=== PATIENT | male | born 1965 | race Caucasian/White ===

== ENCOUNTER 2018-09-20 17:24 | Inpatient (IN) | payer OTHER ==
--- NOTE | 2018-09-20 17:54 | PDOC ---
Rapid Medical Evaluation Chief Complaint: Alcohol intoxication Time Seen by Provider: 09/20/18 17:47 Medical Evaluation: 09/20/18 17:47 53 year old male came for detox from alcohol. patient reports tremors. last drink 2 days ago. patient was seen at [facility] from [facility] for suicidal ideation reports that he waitied long time for a bed at detox center. here requesting detox. PE: patient alert ox3. reports SI A: alcohol abuse P: cbc cmp alcohol level patient to the ER for further management of care. pmhx:chronic pain anxiety 09/20/18 17:57 Discharge Disposition - Diagnosis Suicidal ideation, Alcohol abuse - Referrals - Patient Instructions - Post Discharge Activity
[2018-09-20 17:57] VITALS: BMI 34.1
[2018-09-20 19:39] LABS: BASO % 1.2 % (0-2.0); EOS % 0.7 % (0-4.5); HEMATOCRIT 39.4 % (35.4-49); HEMOGLOBIN 13.6 GM/dL (11.7-16.9); LYMPH % 12.4 % (8-40); MCH 29.9 pg (25.7-33.7); MCHC 34.6 g/dl (32.0-35.9); MEAN CELL VOLUME 86.5 fl (80-96); MEAN PLT VOLUME 6.3 fl (7.5-11.1); MONO % 8.6 % (3.8-10.2); NEUT % 77.1 % (42.8-82.8); PLATELET COUNT 408 K/MM3 (134-434); RBC 4.55 M/mm3 (4.00-5.60); RDW 16.6 % (11.9-15.9)
[2018-09-20 19:40] LABS: URINE APPEARANCE CLEAR; URINE BILIRUBIN NEGATIVE (<2.0 mg/dL); URINE COLOR YELLOW; URINE GLUCOSE (UA) NEGATIVE (NEGATIVE); URINE KETONE TRACE (NEGATIVE); URINE LEUK ESTERASE NEGATIVE (NEGATIVE); URINE NITRITE NEGATIVE (NEGATIVE); URINE PROTEIN 1+ (NEGATIVE); URINE UROBILINOGEN NEGATIVE mg/dL (0.2-1.0)
[2018-09-20 19:50] LABS: EPI CELLS RARE /HPF (FEW); URINE MUCUS MANY
--- NOTE | 2018-09-20 19:52 | PDOC ---
History of Present Illness - General Chief Complaint: Suicidal Stated Complaint: INTOXICATE ALCOHAL Time Seen by Provider: 09/20/18 17:47 - History of Present Illness Initial Comments: Thompson Cutler is a 53yo man with a PMH of depression, anxiety, alcohol abuse , and chronic left hip pain who presents reporting an alcohol binge on Tuesday and current passive suicidal ideation. Mr Cutler states that he has a long history of anxiety and depression; he takes seroquel and xanax at home. He endorses a previous suicide attempt (cut wrists) last year. Currently, he states that he thinks frequently about suicide. He has come up with several plans such as allowing his apartment to fill up with gas and then cause an explosion, but he has rejected the plans as they would harm other people. He also reports a history of anxiety with panic attacks, and requests his home xanax though he denies current anxiety. He endorses a history of binge drinking as well. Mr Cutler states that he does not drink daily, but he binges several time per month. Two days ago, he says that he drank 6 bottles of rum from Tuesday into Tuesday morning. He fell, hurting his right hip, and presented to the ED at [facility]. He says that he was admitted to their "psych [facility]no" and sent to detox, but detox would not take him because he takes oxycodone at home. He states that he did not feel able to go home, so he came here. Mr Cutler does report that he has been seen multiple times at [facility] for alcohol, and he states that they always do blood tests and give him a banana bag. He says his potassium is always low when checked, and he requests labs today. He additionally requests his home medications several times throughout the interview. Past History - Past Medical History Allergies/Adverse Reactions: Allergies Allergy/AdvReac Type Severity Reaction Status Date / Time Penicillins Allergy Verified 09/20/18 21:08 Home Medications: Ambulatory Orders Acetaminophen W/ Codeine #3 [Tylenol # 3 -] 1 tab PO QID 09/20/18 Alprazolam [Xanax] 1 tab PO BID 09/20/18 Mirtazapine 15 mg PO BID 09/20/18 Quetiapine Fumarate [Seroquel] 100 tab PO HS 09/20/18 oxyCODONE SR [Oxycontin] 10 mg PO DAILY 09/20/18 COPD: No - Suicide/Smoking/Psychosocial Hx Smoking History: Never smoked Hx Alcohol Use: Yes Review of Systems - Review of Systems Comments:: General: No fevers, no chills, no weight or appetite change, no malaise HEENT: No changes in vision, no changes in hearing, no congestion, no sore throat CV: No chest pain, no palpitations, no LE edema Pulm: No SOB, no cough, no wheezing GI: No nausea or vomiting, no change in bowel habits, no melena : No frequency, no urgency, no dysuria Musc: No back pain, no joint swelling, no recent injury Skin: No rash, no lesions, no erythema Endo: No excessive thirst, no heat/cold intolerance Heme: No unusual bruising or bleeding, no swollen glands Neuro: No syncope, no numbness/tingling, no focal weakness Vasc: No claudication Psych: +SI, no HI, +alcohol abuse *Physical Exam - Vital Signs Last Vital Signs Temp Pulse Resp BP Pulse Ox 98.3 F 111 H 20 127/74 99 09/20/18 17:56 09/20/18 17:56 09/20/18 17:56 09/20/18 17:56 09/20/18 17:56 - Physical Exam Comments: General: Comfortable, no acute distress. Obese. Wearing a diaper and shirt, no other clothing. HEENT: PERRL, EOMI, MMM, voice normal. Poor dentition with multiple missing teeth Cards: RRR, no murmur appreciated Pulm: Comfortable on room air, clear to auscultation bilaterally Abd: Soft, nontender, nondistended Ext: Atraumatic. No LE edema. Moves all extremities Vasc: Extremities WWP. Skin: Normal color, no rashes or lesions Neuro: A&Ox3, CN grossly intact, normal speech, motor/sensory grossly intact and symmetric Psych: Pleasant, cooperative, normal affect. Very eager to have labs, tests Moderate Sedation - Procedure Monitoring Vital Signs: Procedure Monitoring Vital Signs Temperature 98.3 F 09/20/18 17:56 Pulse Rate 111 H 09/20/18 17:56 Respiratory Rate 20 09/20/18 17:56 Blood Pressure 127/74 09/20/18 17:56 O2 Sat by Pulse Oximetry (%) 99 09/20/18 17:56 ED Treatment Course - LABORATORY CBC & Chemistry Diagram: 09/20/18 19:35 09/20/18 19:35 - ADDITIONAL ORDERS Additional order review: Laboratory Results 09/20/18 19:35 Urine Color Yellow Urine Appearance Clear Urine pH 6.0 Ur Specific [place] 1.026 Urine Protein 1+ H Urine Glucose (UA) Negative Urine Ketones Trace H Urine Blood Negative Urine Nitrite Negative Urine Bilirubin Negative Urine Urobilinogen Negative Ur Leukocyte Esterase Negative Medical Decision Making - Medical Decision Making 09/20/18 19:46 Thompson Cutler is a 53yo man with a PMH of depression w/ previous suicide attempt, anxiety, alcohol abuse, and 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 - No report of previous alcohol withdrawal, seizure, hallucinations. - Will need psych clearance prior to rehab/detox or discharge. States that he was sent home from [facility] due to oxy use, but there is no record in his chart that he was at [facility]. - Appears to have been seen multiple times secondary to alcohol, though not at [facility]. Stated that he "always gets a banana bag" - Requesting home oxycodone and xanax; will give acetaminophen for hip pain given report of substance abuse - Tachycardic. Unclear whether from alcohol withdrawal, benzo withdrawal, anxiety, or other cause - CBC, CMP, UA, alcohol level, serum tox. 09/20/18 20:41 - CBC, chemistry completed. Unremarkable - UA with trace ketones. Will rehydrate orally - Urine tox positive for opiates. Unclear whether prescribed, pt states he takes oxycodone and tylenol w/ codeine. Reports home xanax use, but tox negative for benzos. Alcohol pending. - RPR, B12, folate ordered to r/o organic causes of fall and given unclear story - Spoke to Dr Zaidi. Will see in the morning 09/20/18 21:53 - Alcohol negative - CXR ordered in anticipation of obs v ED obs admission - Sleeping comfortably 09/20/18 22:47 - Microblog sent for ED obs admission - 600mg ibuprofen for continued hip pain 09/21/18 03:31 - Per patient request, gave additional acetaminophen for continued pain. - Pt requesting home xanax and opiates again. Will give home dose of Seroquel. 09/21/18 06:01 - Medicine team at bedside. Following discussion with Dr Huynh, verified home meds. - Home oxycontin 10mg ordered 09/21/18 07:07 - Pt signed out to Dr Roa for remainder of ED care. Seen and discussed with Maral Riley and Nicholas. Becky Sarmiento PGY1 *DC/Admit/Observation/Transfer Diagnosis at time of Disposition: Suicidal ideation, Alcohol abuse - Discharge Dispostion Decision to Admit order: Yes - Referrals - Patient Instructions - Post Discharge Activity
--- NOTE | 2018-09-20 19:53 | PDOC ---
Attending Attestation - HPI HPI: 09/20/18 20:10 The patient is a 53 year old male with a significant past medical history of depression, anxiety, etoh abuse and suicidal attempts in the past who presents to the emergency department with suicidal ideations for 3 days. The patient reports that he was out binge drinking on tuesday when he subsequently began to have his SIs. he states that he had about 5 small sized bottles of alcohol. The patient reports that he attempted to check into detox at [facility] but was not accepted. The patient denies any other symptoms or complaints. <Jackson Acosta - Last Filed: 09/20/18 20:10> - Resident Resident Name: Becky Sarmiento - ED Attending Attestation I have performed the following: I have examined & evaluated the patient, The case was reviewed & discussed with the resident, I agree w/resident's findings & plan, Exceptions are as noted - Physicial Exam PE: 09/20/18 20:51 Patient is awake and alert, obese, disheveled, ambulates with a limp Normocephalic, atraumatic PERRLA, EOMI, no nystagmus CTA RRR No lower extremity edema Nonfocal neurologically nl mood/ affect, - Medical Decision Making 09/20/18 20:53 53-year-old male with history of anxiety and depression presents with suicidal ideations after being rejected from [facility]. Patient is hemodynamically stable expressing thoughts of self-harm without a definitive plan. Will medically clear. Will watch for signs of benzodiazepine and alcohol withdrawal. Will consult psychiatry. Will place in ED ups. <Tod Riley - Last Filed: 09/20/18 20:54> Attestations - Attestations 09/20/18 20:10 Documentation prepared by Jackson Acsota, acting as medical bill processor for Tod Riley MD. <Jackson Acosta - Last Filed: 09/20/18 20:10>
[2018-09-20 19:55] LABS: INR 1.12 (0.83-1.09); PROTHROMBIN TIME (PATIENT) 13.2 SEC (9.7-13.0)
[2018-09-20] MEDS ORDERED: ACETAMINOPHEN 325 MG TABLET (FP) PO ONE (19:55)
[2018-09-20 20:01] LABS: ALBUMIN 3.6 g/dl (3.4-5.0); ALK PHOS 135 U/L (45-117); ANION GAP 9 MMOL/L (8-16); BILIRUBIN,TOTAL 0.4 mg/dL (0.2-1); BLOOD UREA NITROGEN 9 mg/dL (7-18); CHLORIDE 107 mmol/L (98-107); CO2 24 mmol/L (21-32); CREATININE 0.9 mg/dL (0.55-1.3); GLUCOSE,RANDOM 106 mg/dL (74-106); POTASSIUM 3.5 mmol/L (3.5-5.1); SGOT/AST 23 U/L (15-37); SGPT/ALT 28 U/L (13-61); SODIUM 141 mmol/L (136-145); TOT PROT 6.9 g/dl (6.4-8.2)
[2018-09-20 20:19] LABS: COCAINE, UR NEGATIVE ng/ml (CUTOFF=300); METHADONE, UR NEGATIVE ng/ml (CUTOFF=300); PHENCYCLIDINE,URINE NEGATIVE ng/ml (CUTOFF=25); URINE AMPHETAMINES NEGATIVE ng/ml (CUTOFF=500); URINE BARBITURATES NEGATIVE ng/ml (CUTOFF=200); URINE BENZODIAZEPINES NEGATIVE ng/ml (CUTOFF=200)
[2018-09-20 20:29] LABS: OPIATES, URI POSITIVE ng/ml (CUTOFF=300)
[2018-09-20] MEDS ORDERED: IBUPROFEN 600 MG TABLET (FP) PO ONE ×2 (22:49→22:52)
--- NOTE | 2018-09-20 23:37 | HP ---
CHIEF COMPLAINT: suicidal ideation PCP: Dr Aaron HISTORY OF PRESENT ILLNESS: 53M with pmhx of depression and anxiety presenting to the ED d/t suicidal thoughts beginning Tuesday. He says these thoughts have been occurring "on and off" since Tuesday. On Tuesday he says he got intoxicated after not receiving his Xanax prescription from his PCP as anticipated. On Tuesday he drank 5 bottles of rum, he then called 911, and was admitted to the psych [facility] at [facility] in [place]. He states he was supposed to go to detox at [facility] but he was not accepted due to being on Oxycontin pain medication. He says prior to this incident he was sober for 20 days but has a history of alcohol binges in which he only drinks and does not eat. He says his mother, who he had been living with and taking care of for the past 7 years, recently in May at 91 years of age from UTI/bacteremia. He says he has seen one psychiatrist before but stopped seeing him after "getting into an argument". He describes one previous suicide attempt in which he cut his wrists. Today the patient says he has suicidal ideation occurring on and off since getting intoxicated Tuesday. He does not currently have a plan, but states he would like to do "whatever is easiest". He denies homicidal ideation. He states he has right hip pain after a recent fall- however imaging showed no fracture, as well as left hip pain due to avascular necrosis which he never received treatment for. He also says he has had diarrhea which he describes as nonbloody, watery, and brown which started after he took "Z-pack for 6 days" which he had at home, he took this after going to the dentist. He denies hallucinations of any kind, delusions, chest pain, shortness of breath, fevers, chills, abdominal pain, hematuria, dysuria, or hematochezia. ER course was notable for: (1) VS wnl, Utox +opiates (2) Tylenol given (3) Recent Travel: Denies PAST MEDICAL HISTORY: Anxiety Depression PAST SURGICAL HISTORY: Denies Social History: Smoking: Denies Alcohol: Binge drinks about 6-7 bottles of rum at a time during his depressive episodes; last binging episode was in August during the Super[employer] Drugs: Denies Family History: Denies Allergies Penicillins Allergy (Verified 09/20/18 21:08) HOME MEDICATIONS: Home Medications Medication Instructions Recorded Acetaminophen W/ Codeine #3 1 tab PO QID 09/20/18 [Tylenol # 3 -] Alprazolam [Xanax] 1 tab PO BID 09/20/18 Mirtazapine 15 mg PO BID 09/20/18 Quetiapine Fumarate [Seroquel] 100 tab PO HS 09/20/18 oxyCODONE SR [Oxycontin] 10 mg PO DAILY 09/20/18 REVIEW OF SYSTEMS CONSTITUTIONAL: Absent: fever, chills, diaphoresis, generalized weakness, malaise, loss of appetite, weight change HEENT: Absent: rhinorrhea, nasal congestion, throat pain, throat swelling, difficulty swallowing, mouth swelling, ear pain, eye pain, visual changes CARDIOVASCULAR: Absent: chest pain, syncope, palpitations, irregular heart rate, lightheadedness , peripheral edema RESPIRATORY: Absent: cough, shortness of breath, dyspnea with exertion, orthopnea, wheezing, stridor, hemoptysis GASTROINTESTINAL: Absent: abdominal pain, abdominal distension, nausea, vomiting, diarrhea, constipation, melena, hematochezia GENITOURINARY: Absent: dysuria, frequency, urgency, hesitancy, hematuria, flank pain, genital pain MUSCULOSKELETAL: +chronic L hip pain Absent: myalgia, arthralgia, joint swelling, back pain, neck pain SKIN: Absent: rash, itching, pallor HEMATOLOGIC/IMMUNOLOGIC: Absent: easy bleeding, easy bruising, lymphadenopathy, frequent infections ENDOCRINE: Absent: unexplained weight gain, unexplained weight loss, heat intolerance, cold intolerance NEUROLOGIC: Absent: headache, focal weakness or paresthesias, dizziness, unsteady gait, seizure, mental status changes, bladder or bowel incontinence PSYCHIATRIC: +depression, suicidal ideation Absent: anxiety, depression, homicidal ideation, hallucinations. PHYSICAL EXAMINATION Vital Signs - 24 hr 09/20/18 09/20/18 09/20/18 17:56 20:14 22:50 Temperature 98.3 F Pulse Rate 111 H Pulse Rate [ 86 90 Apical] Respiratory 20 20 18 Rate Blood Pressure 127/74 Blood Pressure 160/84 140/80 [Right Arm] O2 Sat by Pulse 99 99 98 Oximetry (%) GENERAL: AAOx3. NAD. Resting comfortably in bed. HEENT: AT/NC. EOMI. NIGEL. Moist mucus membranes. Poor dentition. NECK: Normal range of motion, supple without lymphadenopathy, JVD, or masses. LUNGS: CTA B/L. Symmetric chest rise. HEART: RRR. Normal S1, S2. No murmurs noted. ABDOMEN: Soft, nontender, not distended, normoactive bowel sounds, no guarding, no rebound, no masses. No hepatomegaly or splenomegaly. MUSCULOSKELETAL: Point tenderness b/l hip at level of femoral head, but no ecchymoses or visible deformities seen. UPPER EXTREMITIES: 2+ pulses, warm, well-perfused. No cyanosis. No clubbing. No peripheral edema. LOWER EXTREMITIES: 2+ pulses, warm, well-perfused. No calf tenderness. No peripheral edema. Limited ROM in L hip flexion due to pain. 5/5 R hip flexion. PSYCHIATRIC: Cooperative. Good eye contact. Depressed. Laboratory Results - last 24 hr 09/20/18 09/20/18 09/20/18 19:28 19:35 19:35 WBC 10.0 RBC 4.55 Hgb 13.6 Hct 39.4 MCV 86.5 MCH 29.9 MCHC 34.6 RDW 16.6 H Plt Count 408 MPV 6.3 L Absolute Neuts (auto) 7.7 Neutrophils % 77.1 Lymphocytes % 12.4 Monocytes % 8.6 Eosinophils % 0.7 Basophils % 1.2 Nucleated RBC % 0 PT with INR 13.20 H INR 1.12 H Sodium Potassium Chloride Carbon Dioxide Anion Gap BUN Creatinine Creat Clearance w eGFR Random Glucose Calcium Total Bilirubin AST ALT Alkaline Phosphatase Total Protein Albumin Vitamin B12 Serum Folate Urine Color Urine Appearance Urine pH Ur Specific [place] Urine Protein Urine Glucose (UA) Urine Ketones Urine Blood Urine Nitrite Urine Bilirubin Urine Urobilinogen Ur Leukocyte Esterase Urine WBC (Auto) Urine RBC (Auto) Ur Epithelial Cells Urine Mucus Opiates Screen Positive A* Methadone Screen Negative Barbiturate Screen Negative Phencyclidine Screen Negative Ur Amphetamines Screen Negative MDMA (Ecstasy) Screen Negative Benzodiazepines Screen Negative Cocaine Screen Negative U Marijuana (THC) Screen Negative Alcohol, Quantitative 09/20/18 09/20/18 19:35 19:35 WBC RBC Hgb Hct MCV MCH MCHC RDW Plt Count MPV Absolute Neuts (auto) Neutrophils % Lymphocytes % Monocytes % Eosinophils % Basophils % Nucleated RBC % PT with INR INR Sodium 141 Potassium 3.5 Chloride 107 Carbon Dioxide 24 Anion Gap 9 BUN 9 Creatinine 0.9 Creat Clearance w eGFR > 60 Random Glucose 106 Calcium 9.0 Total Bilirubin 0.4 AST 23 ALT 28 Alkaline Phosphatase 135 H Total Protein 6.9 Albumin 3.6 Vitamin B12 172 L Serum Folate 11 Urine Color Yellow Urine Appearance Clear Urine pH 6.0 Ur Specific [place] 1.026 Urine Protein 1+ H Urine Glucose (UA) Negative Urine Ketones Trace H Urine Blood Negative Urine Nitrite Negative Urine Bilirubin Negative Urine Urobilinogen Negative Ur Leukocyte Esterase Negative Urine WBC (Auto) 2 Urine RBC (Auto) None Ur Epithelial Cells Rare Urine Mucus Many Opiates Screen Methadone Screen Barbiturate Screen Phencyclidine Screen Ur Amphetamines Screen MDMA (Ecstasy) Screen Benzodiazepines Screen Cocaine Screen U Marijuana (THC) Screen Alcohol, Quantitative < 3.0 CONSULT: Psych- Dr. Zaidi IMAGING: * CXR: Unremarkable. ASSESSMENT/PLAN: 53M w/ pmhx of anxiety, suicidal ideation presented to the ED with complaints of suicidal ideation. #Suicidal Ideation; s/p alcohol intox -CIWA 0. Monitor for withdrawal. May give Librium PRN. -Psych consult; await clearance -1:1 observation #Chronic L hip pain; Pt reports hx of chronic avascular necrosis of hip diagnosed 6-7 years ago -Pt currently walks with a limp, but does not use any assistive devices. Cont home meds: Oxycodone 10 QD (verified on iSTOP) #Hx of Alcohol Abuse -CIWA 0. Cont to monitor for withdrawal symptoms -Thiamine, folate -Librium Protocol #Depression/Anxiety -Pt states he takes Seroquel and Xanax at home. Needs med rec from pharmacy -F/u psych consult #Prophylaxis -Lovenox SQ #FEN -PO hydration -BMP stable -Regular diet dispo -ED obs -full code Visit type - Emergency Visit Emergency Visit: Yes ED Registration Date: 09/21/18 Care time: The patient presented to the Emergency Department on the above date and was hospitalized for further evaluation of their emergent condition. - New Patient This patient is new to me today: Yes Date on this admission: 09/22/18 - Critical Care Critical Care patient: No
--- NOTE | 2018-09-21 01:41 | PN ---
Teaching Attending Note Name of Resident: Radha Nixon ATTENDING PHYSICIAN STATEMENT I saw and evaluated the patient. I reviewed the resident's note and discussed the case with the resident. I agree with the resident's findings and plan as documented. SUBJECTIVE: Seen and examined; please refer to resident note for further historical information. Briefly, the patient presents to [facility] for detox/SI and is pending psychiatric clearance; did have a loosely outlined plan but no attempt ( included the gas at his appt?). He is hemodynamically stable and afebrile and on 1:1. He was recently at [facility] and was discharged from their psych facility recently (he eventually states he was cleared yesterday morning after only being there for 6 hours). Attempted to go to [facility] but he originally tells given that he is on oxycontin he tells us he was unable to be at [facility] so he chose to pursue his further medical care here; he later recalled it may have been due to them not having a bed. He has been binge drinking for several days. +Opiates, -EtOH 10 sys ROS done and negative aside from HPI PMH, PSH, Social hx, Family hx reviewed Medications pending reconciliation OBJECTIVE: VS, labs, imaging reviewed NAD, AAO, resting in bed NC AT EOMI PERRLA RRR s1/2 no mgr Lungs CTAB, w/ sym exp NT ND +BS CN2-12 wnl, no fnd Depressed mood with blunted affect ASSESSMENT AND PLAN: Patient presents with SI requesting detox and is awaiting psych clearance; recently cleared at [facility] psych but tells me he was unable to go to [facility] due to chronic oxycontin use vs. bed issue. 1) SI -Place on 1:1 monitoring, hold in ER until psychiatry clears him. -PRN management for agitation (BZD, antipsych, etc.) but he is not acting in such a way now. Will defer further tx to the specialty services; appreciate their expert opinion. 2) Chronic Back Pain -Continue home meds after verifying on iSTOP 3) EtOH Abuse -Thiamine, folate. CIWA with librium protocol. 4) Elevated Alk Phos -Very mild; can likely followup with OP CMP and checking ggt 5) Hx Depression/Anxiety -Per psych consult FENA -PO -PRN replete -Regular -1:1; as tolerated Full Code
[2018-09-21] MEDS ORDERED: ACETAMINOPHEN 325 MG TABLET (FP) ONE ×2 (02:44→19:44)
[2018-09-21] MEDS ORDERED: ACETAMINOPHEN 325 MG TABLET (FP) PO ONE (03:01)
[2018-09-21] MEDS ORDERED: QUEtiapine FUMARATE 100 MG TABLET (FP) PO ONE (03:31)
[2018-09-21] MEDS ORDERED: QUEtiapine FUMARATE 100 MG TABLET (FP) ONE ×2 (03:35→22:30)
[2018-09-21] MEDS ORDERED: chlordiazePOXIDE HCL 25 MG CAPSULE PO SCH (05:00)
[2018-09-21] MEDS ORDERED: FOLIC ACID 1 MG TABLET (FP) PO ONE (05:12)
[2018-09-21] MEDS ORDERED: chlordiazePOXIDE HCL 10 MG CAPSULE PO PRN (05:13)
[2018-09-21] MEDS ORDERED: FOLIC ACID 1 MG TABLET (FP) ONE (05:36)
[2018-09-21] MEDS ORDERED: chlordiazePOXIDE HCL 25 MG CAPSULE ONE (05:36)
[2018-09-21] MEDS ORDERED: THIAMINE HCL 100 MG TABLET (FP) ONE (09:43)
[2018-09-21] MEDS ORDERED: oxyCODONE HCL 10 MG SUSTAINED ACTING TABLET ONE (09:43)
[2018-09-21] MEDS ORDERED: ENOXAPARIN NA (PORCINE) 40 MG/0.4 ML DISP.SYRIN SQ ONE (09:44)
[2018-09-21] MEDS ORDERED: ENOXAPARIN NA (PORCINE) 40 MG/0.4 ML DISP.SYRIN SQ SCH (10:00)
[2018-09-21] MEDS ORDERED: oxyCODONE HCL 10 MG SUSTAINED ACTING TABLET PO SCH (10:00)
[2018-09-21] MEDS ORDERED: THIAMINE HCL 100 MG TABLET (FP) PO SCH (10:00)
[2018-09-21 10:21] LABS: ALBUMIN 3.5 g/dl (3.4-5.0); ALK PHOS 134 U/L (45-117); ANION GAP 6 MMOL/L (8-16); BILIRUBIN,TOTAL 0.4 mg/dL (0.2-1); BLOOD UREA NITROGEN 9 mg/dL (7-18); CALCIUM 9.1 mg/dL (8.5-10.1); CHLORIDE 107 mmol/L (98-107); CO2 27 mmol/L (21-32); CREATININE 0.9 mg/dL (0.55-1.3); GLUCOSE,RANDOM 94 mg/dL (74-106); POTASSIUM 3.1 mmol/L (3.5-5.1); SGOT/AST 24 U/L (15-37); SGPT/ALT 28 U/L (13-61); SODIUM 140 mmol/L (136-145); TOT PROT 6.8 g/dl (6.4-8.2)
[2018-09-21] MEDS ORDERED: FOLIC ACID INJECTION - 1 MG, THIAMINE HCL 100 MG, MULTIVIT INJECTION ADULT 10 ML in SOD... IVPB ONE (11:08)
[2018-09-21] MEDS ORDERED: POTASSIUM CHLORIDE ORAL LIQUID 20 MEQ/15 ML PO ONE (11:09)
--- NOTE | 2018-09-21 11:09 | PN ---
Teaching Attending Note Name of Resident: Angel Nunez ATTENDING PHYSICIAN STATEMENT I saw and evaluated the patient. I reviewed the resident's note and discussed the case with the resident. I agree with the resident's findings and plan as documented. SUBJECTIVE:conmariannaues to have depressive thoughts. has multiple ideas of how he could end his life but has not carried them out. was at [facility] 2 days ago with these same feelings. was observed overnight in their psychiatric ED but then released. states he has not made an attempt. denies CP, SOB, fever, chills, N/V/ C/D, auditory/visual hallucinations, homicidal thoughts OBJECTIVE: Last Vital Signs Temp Pulse Resp BP Pulse Ox 98.3 F 82 18 152/80 100 09/20/18 17:56 09/21/18 06:15 09/21/18 06:15 09/21/18 06:15 09/21/18 06:15 General tearful on exam CV S1 S2 RRR no murmur/rub/gallop Lungs CTA B/l no wheezing/rales/rhonchi abdomen soft NT/ND Extremities no tremors ASSESSMENT AND PLAN: 53yo M with PMH continuous ETOH abuse and depression presented to the ER with suicidal idealizations 1. Sucidial idealizations- continues to have these thoughts with multiple plans. will need inpatient involuntary psychiatric evaluation. awaiting psych eval. remove all items that can be used to harm the patient from the room. 1:1 observation 2. elevated alk phos- no abdominal pain. can f/u with PMD as outpatient 3. continous ETOH abuse- CIWA 0. will stop librium at this time. monitor for signs of withdrawal. cont thiamine/folate/MVI, banana bag 4. hypokalemia- Kcl po 5. DVT ppx- lovenox
[2018-09-21 11:26] LABS: MAGNESIUM 2.1 mg/dL (1.8-2.4)
[2018-09-21] MEDS ORDERED: POTASSIUM CHLORIDE ORAL LIQUID 20 MEQ/15 ML ONE (11:32)
--- NOTE | 2018-09-21 11:32 | CON.PSY ---
Psychiatry Consult Chief Complaint: I want to kill myself. I have been depressed since my mom . I cut my wrists and been drinking on ntop of my Psych meds. I was in [facility] 10 yrs ago for same thing. Symptoms: reports: Depressed Mood, Suicidality, Self destructive thoughts, Sleep Disturbance - Previous Psychiatric Treatment Outpatient: Less than 6 mos ago Inpatient: One prior admission - Previous Substance Abuse Treatment Outpatient: None Inpatient: None - Reason for Previous Treatment Reason for Previous Treatment: Major Depression, Suicidal Attempt/Behavior - Current Medications Current Medications: Active Medications Chlordiazepoxide HCl (Librium -) 10 mg PO Q8H PRN PRN Reason: Signs/symptoms of Withdrawal Stop: 09/23/18 05:00 Enoxaparin Sodium (Lovenox -) 40 mg SQ DAILY [facility] Last Admin: 09/21/18 09:48 Dose: 40 mg Folic Acid 1 mg/ Thiamine HCl 100 mg/ Multivitamins/Minerals 10 ml/ Sodium Chloride 1,000 mls @ 125 mls/hr IVPB ONCE ONE Stop: 09/21/18 19:07 Oxycodone HCl (Oxycontin -) 10 mg PO DAILY [facility] Last Admin: 09/21/18 09:49 Dose: 10 mg Quetiapine Fumarate (Seroquel -) 100 mg PO [facility] Thiamine HCl (Vitamin B1 -) 100 mg PO DAILY [facility] Last Admin: 09/21/18 09:50 Dose: 100 mg - Allergies Allergies: Allergies Allergy/AdvReac Type Severity Reaction Status Date / Time Penicillins Allergy Verified 09/20/18 21:08 - Current Living Status Usual Living Arrangement: Alone - Current Mental Status Evaluation Appearance: Disheveled Attitude: Cooperative - Affect Affect: Constrictive Appropriateness: Appropriate to Content - Mood Mood: Depressed - Speech/Language Expressive: Coherent - Psychomotor Activity Psychomotor Activity: Slowed - Thought Process Thought Process: Intact - Thought Content Hallucinations: Absent Delusions: Absent - Self Perception Self Perception: No Impairment - Cognition Attention: Alert Orientation: Time Memory, Immediate Recall: Intact Memory, Short Term: 3/3 Memory, Remote with Promptin/3 - Concentration Serial Sevens Intact: Yes Simple Calculations Intact: Yes - Abstraction Proverb Interpretation: Intact Judgement: Moderately Impaired - Insight Insight: Impaired - Impulse Control Impulse Control: Moderately Impaired - Suicidal Ideation Suicidal Ideation: Yes (want kill myself) - Homicidal Ideation Homicidal Ideation: No Assessment/Plan 1) In Patient Psych Admission for Suicidal ideas and Plans.
[2018-09-21] MEDS ORDERED: POTASSIUM CHLORIDE TABS 20 MEQ TABLET.ER (FP) PO ONE (11:53)
--- NOTE | 2018-09-21 14:03 | EKG ---
Test Reason : Blood Pressure : / mmHG Vent. Rate : 089 BPM Atrial Rate : 089 BPM P-R Int : 164 ms QRS Dur : 074 ms QT Int : 384 ms P-R-T Axes : 059 040 064 degrees QTc Int : 467 ms NORMAL SINUS RHYTHM NORMAL ECG WHEN COMPARED WITH ECG OF 10-OCT-2009 14:48, NO SIGNIFICANT CHANGE WAS FOUND Confirmed by BOLIVAR MONSON MD ([id number]) on 09/21/2018 2:03:43 PM Referred By: Confirmed By:BOLIVAR MONSON MD
--- NOTE | 2018-09-21 14:28 | PN ---
Progress Note (short form) - Note Progress Note: Patient seen and examined at bedside, labs and imaging reviewed. No acute medical issues. Patient can be transferred to psychiatric facility.
--- NOTE | 2018-09-21 15:25 | DS ---
Physical Exam: SUBJECTIVE: Patient seen and examined at bedside. No acute physical complaints. Affirms suicidal intent and describes specific plans under consideration for carrying it out. Denies homicidal ideation. OBJECTIVE: Vital Signs Period Temp Pulse Resp BP Sys/Vegas Pulse Ox Last 24 Hr 98.2 F-98.3 F 82-111 18-20 127-160/61-84 98-100 PHYSICAL EXAM GENERAL: AAOx3. NAD. Resting comfortably in bed. HEENT: AT/NC. EOMI. NIGEL. Moist mucus membranes. Poor dentition. NECK: Normal range of motion, supple without lymphadenopathy, JVD, or masses. LUNGS: CTA B/L. Symmetric chest rise. HEART: RRR. Normal S1, S2. No murmurs noted. ABDOMEN: Soft, nontender, not distended, normoactive bowel sounds, no guarding, no rebound, no masses. No hepatomegaly or splenomegaly. MUSCULOSKELETAL: Point tenderness b/l hip at level of femoral head, but no ecchymoses or visible deformities seen. UPPER EXTREMITIES: 2+ pulses, warm, well-perfused. No cyanosis. No clubbing. No peripheral edema. LOWER EXTREMITIES: 2+ pulses, warm, well-perfused. No calf tenderness. No peripheral edema. Limited ROM in L hip flexion due to pain. 5/5 R hip flexion. PSYCHIATRIC: Cooperative. Good eye contact. Depressed. LABS Laboratory Results - last 24 hr 09/20/18 09/20/18 09/20/18 19:28 19:35 19:35 WBC 10.0 RBC 4.55 Hgb 13.6 Hct 39.4 MCV 86.5 MCH 29.9 MCHC 34.6 RDW 16.6 H Plt Count 408 MPV 6.3 L Absolute Neuts (auto) 7.7 Neutrophils % 77.1 Lymphocytes % 12.4 Monocytes % 8.6 Eosinophils % 0.7 Basophils % 1.2 Nucleated RBC % 0 PT with INR 13.20 H INR 1.12 H Sodium Potassium Chloride Carbon Dioxide Anion Gap BUN Creatinine Creat Clearance w eGFR Random Glucose Calcium Magnesium Total Bilirubin AST ALT Alkaline Phosphatase Total Protein Albumin Vitamin B12 Serum Folate Urine Color Urine Appearance Urine pH Ur Specific [place] Urine Protein Urine Glucose (UA) Urine Ketones Urine Blood Urine Nitrite Urine Bilirubin Urine Urobilinogen Ur Leukocyte Esterase Urine WBC (Auto) Urine RBC (Auto) Ur Epithelial Cells Urine Mucus Opiates Screen Positive A* Methadone Screen Negative Barbiturate Screen Negative Phencyclidine Screen Negative Ur Amphetamines Screen Negative MDMA (Ecstasy) Screen Negative Benzodiazepines Screen Negative Cocaine Screen Negative U Marijuana (THC) Screen Negative Alcohol, Quantitative RPR Titer 09/20/18 09/20/18 09/20/18 19:35 19:35 19:55 WBC RBC Hgb Hct MCV MCH MCHC RDW Plt Count MPV Absolute Neuts (auto) Neutrophils % Lymphocytes % Monocytes % Eosinophils % Basophils % Nucleated RBC % PT with INR INR Sodium 141 Potassium 3.5 Chloride 107 Carbon Dioxide 24 Anion Gap 9 BUN 9 Creatinine 0.9 Creat Clearance w eGFR > 60 Random Glucose 106 Calcium 9.0 Magnesium Total Bilirubin 0.4 AST 23 ALT 28 Alkaline Phosphatase 135 H Total Protein 6.9 Albumin 3.6 Vitamin B12 172 L Serum Folate 11 Urine Color Yellow Urine Appearance Clear Urine pH 6.0 Ur Specific [place] 1.026 Urine Protein 1+ H Urine Glucose (UA) Negative Urine Ketones Trace H Urine Blood Negative Urine Nitrite Negative Urine Bilirubin Negative Urine Urobilinogen Negative Ur Leukocyte Esterase Negative Urine WBC (Auto) 2 Urine RBC (Auto) None Ur Epithelial Cells Rare Urine Mucus Many Opiates Screen Methadone Screen Barbiturate Screen Phencyclidine Screen Ur Amphetamines Screen MDMA (Ecstasy) Screen Benzodiazepines Screen Cocaine Screen U Marijuana (THC) Screen Alcohol, Quantitative < 3.0 RPR Titer Nonreactive 09/21/18 09:40 WBC RBC Hgb Hct MCV MCH MCHC RDW Plt Count MPV Absolute Neuts (auto) Neutrophils % Lymphocytes % Monocytes % Eosinophils % Basophils % Nucleated RBC % PT with INR INR Sodium 140 Potassium 3.1 L Chloride 107 Carbon Dioxide 27 Anion Gap 6 L BUN 9 Creatinine 0.9 Creat Clearance w eGFR > 60 Random Glucose 94 Calcium 9.1 Magnesium 2.1 Total Bilirubin 0.4 AST 24 ALT 28 Alkaline Phosphatase 134 H Total Protein 6.8 Albumin 3.5 Vitamin B12 Serum Folate Urine Color Urine Appearance Urine pH Ur Specific [place] Urine Protein Urine Glucose (UA) Urine Ketones Urine Blood Urine Nitrite Urine Bilirubin Urine Urobilinogen Ur Leukocyte Esterase Urine WBC (Auto) Urine RBC (Auto) Ur Epithelial Cells Urine Mucus Opiates Screen Methadone Screen Barbiturate Screen Phencyclidine Screen Ur Amphetamines Screen MDMA (Ecstasy) Screen Benzodiazepines Screen Cocaine Screen U Marijuana (THC) Screen Alcohol, Quantitative RPR Titer HOSPITAL COURSE: Date of Admission:09/21/18 Patient is a 53 y/o M w/ PMHx anxiety, depression, suicidal ideation, p/w suicidal intent after binging on EtOH 2 days prior and being seen emergently at [facility] without admission or treatment. No organic pathologies appreciated. Psychiatry consulted. Patient was committed for inpatient psychiatric hospitalization and transferred to outside facility for this purpose. Date of Discharge: 09/21/18 Minutes to complete discharge: 40 Discharge Summary Reason For Visit: ALCOHOL ABUSE SUICIDAL IDEATION Current Active Problems Alcohol abuse (Acute) Suicidal ideation (Acute) Condition: Guarded - Instructions Diet, Activity, Other Instructions: You are being transferred to a psychiatric inpatient facility for further management of your condition. You are medically clear for transfer. Referrals: Nancy Aaron MD [Primary Care Provider] - Disposition: TRANSFER ACUTE CARE/OTHER HOSP - Home Medications Comprehensive Discharge Medication List: Ambulatory Orders Acetaminophen W/ Codeine #3 [Tylenol # 3 -] 1 tab PO QID 09/20/18 Alprazolam [Xanax] 1 tab PO BID 09/20/18 Mirtazapine 15 mg PO BID 09/20/18 Quetiapine Fumarate [Seroquel] 100 tab PO HS 09/20/18 oxyCODONE SR [Oxycontin] 10 mg PO DAILY 09/20/18 Cholecalciferol (Vitamin D3) [Vitamin D3] 50,000 unit PO WEEKLY 09/21/18 Ibuprofen 600 mg PO Q8H PRN 09/21/18 This patient is new to me today: Yes Date on this admission: 09/22/18 Emergency Visit: Yes ED Registration Date: 09/21/18 Care time: The patient presented to the Emergency Department on the above date and was hospitalized for further evaluation of their emergent condition. Critical Care patient: No - Discharge Referral Referred to [facility] Med P.C.: No
[2018-09-21 18:48] VITALS: TEMP 97.9
[2018-09-21] MEDS ORDERED: QUEtiapine FUMARATE 100 MG TABLET (FP) PO SCH (22:00)
[2018-09-22 03:00] VITALS: BP 132/84; PULSE 62
[2018-09-22] MEDS ORDERED: chlordiazePOXIDE 5 MG CAPSULE PO SCH (05:00)
[2018-09-23] MEDS ORDERED: chlordiazePOXIDE HCL 10 MG CAPSULE PO PRN (05:00)
[2018-09-23] MEDS ORDERED: chlordiazePOXIDE HCL 10 MG CAPSULE PO SCH (05:00)
== END 2018-09-22 02:57 | disposition short-term general hospital (02) | DRG 756 ==
LOC: JER 17:24 → JERBED 23:11 → OBSVTOIN 09-21 10:33
PROVIDERS: ADMIT Internal Medicine; ATTEND Internal Medicine
DX: R45.851 Suicidal ideations (principal); F41.9 Anxiety disorder, unspecified; F10.10 Alcohol abuse, uncomplicated; E87.6 Hypokalemia; M54.9 Dorsalgia, unspecified; F41.8 Other specified anxiety disorders
CPT/HCPCS: 36415; 71045-TC-FY; 80053; 80307; 81003; 81015; 82607; 82746; 83735; 85025; 85610; 86593; 93005; 93010; 99285-25; G0378; J7030

== ENCOUNTER 2019-03-26 13:56 | Emergency (ER) | payer OTHER ==
[2019-03-26 14:01] VITALS: BP 124/80; PULSE 132; BMI 36.6
[2019-03-26] MEDS ORDERED: SODIUM CHLORIDE 1,000 ML IV STA (14:01)
--- NOTE | 2019-03-26 14:01 | PDOC ---
Rapid Medical Evaluation Medical Evaluation: Allergies Allergy/AdvReac Type Severity Reaction Status Date / Time Penicillins Allergy Verified 09/20/18 21:08 I have performed a brief in-person evaluation of this patient. he patient presents with a chief complaint of: just finished rehab 3 days for L hip replacement (was in rehab for 7 weeks); c/o lightheaded and diarrhea from today; denies fever, cp, abd pain, vomiting Pertinent physical exam findings: NAD I have ordered the following: Labs, EKG, IVF, rectal temp The patient will proceed to the ED for further evaluation. 03/26/19 13:58
[2019-03-26 15:03] LABS: BASO % 0.3 % (0-2.0); EOS % 1.1 % (0-4.5); HEMATOCRIT 37.8 % (35.4-49); HEMOGLOBIN 12.3 GM/dL (11.7-16.9); LYMPH % 6.2 % (8-40); MCH 27.1 pg (25.7-33.7); MCHC 32.4 g/dl (32.0-35.9); MEAN CELL VOLUME 83.6 fl (80-96); MEAN PLT VOLUME 7.2 fl (7.5-11.1); MONO % 4.5 % (3.8-10.2); NEUT % 87.9 % (42.8-82.8); PLATELET COUNT 245 K/MM3 (134-434); RBC 4.52 M/mm3 (4.00-5.60); RDW 15.5 % (11.9-15.9); WHITE BLOOD COUNT 13.5 K/mm3 (4.0-10.0)
[2019-03-26 15:06] LABS: PH,URINE 5.5 (5.0-8.0); URINE APPEARANCE CLEAR; URINE BILIRUBIN NEGATIVE (NEGATIVE); URINE COLOR YELLOW; URINE GLUCOSE (UA) NEGATIVE (NEGATIVE); URINE KETONE NEGATIVE (NEGATIVE); URINE LEUK ESTERASE NEGATIVE (NEGATIVE); URINE NITRITE NEGATIVE (NEGATIVE); URINE PROTEIN NEGATIVE (NEGATIVE)
[2019-03-26 15:28] LABS: ALBUMIN 3.9 g/dl (3.4-5.0); ALK PHOS 313 U/L (45-117); ANION GAP 12 MMOL/L (8-16); BILIRUBIN,TOTAL 0.3 mg/dL (0.2-1); BLOOD UREA NITROGEN 17.5 mg/dL (7-18); CHLORIDE 110 mmol/L (98-107); CO2 23 mmol/L (21-32); CREATININE 1.2 mg/dL (0.55-1.3); GLUCOSE,RANDOM 109 mg/dL (74-106); POTASSIUM 3.8 mmol/L (3.5-5.1); SGOT/AST 102 U/L (15-37); SGPT/ALT 84 U/L (13-61); SODIUM 145 mmol/L (136-145); TOT PROT 7.3 g/dl (6.4-8.2)
[2019-03-26 15:40] LABS: VENOUS PC02 38.3 mmHg (38-52); VENOUS PH 7.41 (7.31-7.41)
[2019-03-26 15:41] LABS: VENOUS PO2 < 49 mmHg (28-48)
[2019-03-26 15:51] LABS: INR 1.04 (0.83-1.09); PROTHROMBIN TIME (PATIENT) 12.3 SEC (9.7-13.0)
[2019-03-26 15:53] VITALS: TEMP 100
[2019-03-26 15:54] LABS: ACTIVATED PTT 33.7 SECONDS (25.2-36.5)
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
--- NOTE | 2019-03-26 16:28 | PDOC ---
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 upon arival pt ntoed to be tachy to 130s, low grade tempt o 100.0 abd with mild RLQ ttp - Physicial Exam PE: 03/26/19 17:40 general: no acute distress Card: rrr. no mrg pulm: cta bl abdL soft nontender psych +endorses SI - Critical Care Time Total Critical Care Time: 45 Critical Care Statement: The care of this patient involved high complexity decision making to prevent further life threatening deterioration of the patient 's condition and/or to evaluate & treat vital organ system(s) failure or risk of failure. - Medical Decision Making 03/26/19 17:39 his HR also improving from 130s- 110s with ~1L of hydration. will continue fluid resusitation with goal of HR under 100 pt was reassessed, HR improving, abd soft nonender, feeling improved, when mentioned there is potential of him going home, he told me he wants to 'kill himself' when asked, he states he is depressed that his mom and is thinkin gof hurting himself. when asked if he has a plan, he becomes frustrated. pt was placed on 1:1 and psych will be ocnsulted. in light of possible psych placement, will obtain a CT eval his diarrhea for clearance labs otherwise unermarkable 03/26/19 19:08 pt evaluated by psych and cleared awaiting CT results and dispo 03/26/19 19:22 03/26/19 19:23 when told that he was being discharged, pt became combative, belligerent, smeared feces on the mckeon and ripped out his IV. Pt refused cooperating for repeat vitals, security was called and given option to cooperate with vitals and getting bck in his bed, pt elected to leave priro to signing paperwork. Heart Score/ECG Review - ECG Impressions Comment:: 03/26/19 17:42 Twelve-lead EKG was performed and reviewed by me. There is normal sinus rhythm with rate of 116 imp: sinus tach
[2019-03-26] MEDS ORDERED: SODIUM CHLORIDE 0.9% 500 ML INFUS.BAG IV ONE (16:32)
--- NOTE | 2019-03-26 18:54 | CON.PSY ---
Psychiatry Consult Chief Complaint: 53 Leanna old male known to me from previous ER visit seen for Psych eval. Patient came to Er reporting dizziness, during eval told ER <Md that he was feeling suicidal. Patient had been treated for Depression and alcohol dependence at [facility] and was sent to [facility]. Patient had been functioning well. had hip Surgery and manage to take care of [place] [place]. has no specific plans to kill himself, reports missing his mother. on Cymbalta 60 mg po od. Symptoms: reports: Depressed Mood, Decreased Energy - Previous Psychiatric Treatment Outpatient: Less than 6 mos ago Inpatient: Within the last 12 months - Previous Substance Abuse Treatment Inpatient: Within the last 12 months - Reason for Previous Treatment Reason for Previous Treatment: Major Depression, Alcohol Abuse - Allergies Allergies: Allergies Allergy/AdvReac Type Severity Reaction Status Date / Time Penicillins Allergy Verified 03/26/19 14:01 - Current Living Status Usual Living Arrangement: Alone - Current Mental Status Evaluation Appearance: Well Groomed - Affect Affect: Constrictive Appropriateness: Appropriate to Content - Mood Mood: Depressed - Speech/Language Expressive: Coherent - Psychomotor Activity Psychomotor Activity: Normal, Slowed - Thought Content Hallucinations: Absent Delusions: Absent - Self Perception Self Perception: No Impairment - Cognition Attention: Alert Orientation: Time Memory, Immediate Recall: Intact Memory, Short Term: 3/3 Memory, Remote with Promptin/3 - Concentration Serial Sevens Intact: Yes Simple Calculations Intact: Yes - Abstraction Proverb Interpretation: Intact Judgement: Intact - Insight Insight: Intact - Impulse Control Impulse Control: Good Control - Suicidal Ideation Suicidal Ideation: Yes Plan: No plans. - Homicidal Ideation Homicidal Ideation: No Assessment/Plan 1) no Need for In Patient Psych admission. 2) increase Cymbalta 90 mg po od for Depression. 3) patient should follow up with out Patient Psych clinic and seek Psychotherapy to cope with Grief .
--- NOTE | 2019-03-27 11:15 | EKG ---
Test Reason : Blood Pressure : / mmHG Vent. Rate : 116 BPM Atrial Rate : 116 BPM P-R Int : 186 ms QRS Dur : 088 ms QT Int : 326 ms P-R-T Axes : 054 056 055 degrees QTc Int : 453 ms SINUS TACHYCARDIA POSSIBLE LEFT ATRIAL ENLARGEMENT BORDERLINE ECG WHEN COMPARED WITH ECG OF 20-SEP-2018 21:05, NO SIGNIFICANT CHANGE WAS FOUND Confirmed by Bhavesh Myrick MD ([id number]) on 03/27/2019 11:15:10 AM Referred By: Confirmed By:Bhavesh Myrick MD
== END 2019-03-26 20:07 | disposition home or self-care (01) ==
LOC: JER 13:56
DX: R00.0 Tachycardia, unspecified (principal); R45.851 Suicidal ideations; F10.10 Alcohol abuse, uncomplicated; R50.9 Fever, unspecified; Z96.642 Presence of left artificial hip joint
CPT/HCPCS: 36415; 71045-TC-FY; 74177-TC; 80053; 81003; 82272; 82803; 83605; 84484; 85025; 85610; 85730; 87040; 93005; 93010; 99285-25; J7030

== ENCOUNTER 2022-12-26 11:25 | Observation (INO) | payer OTHER ==
[2022-12-26 11:43] VITALS: BMI 34.4
[2022-12-26] MEDS ORDERED: FAMOTIDINE 20 MG/50 ML IVPB 20 MG/50 ML MG IVPB ONE (11:51)
[2022-12-26] MEDS ORDERED: MAG HYDROX/AL HYDROX/SIMETH 30 ML UNIT-DOSE CUP PO ONE (11:51)
[2022-12-26] MEDS ORDERED: SUCRALFATE 1 GM/10 ML UNIT DOSE CUPS PO ONE (11:51)
[2022-12-26] MEDS ORDERED: SODIUM CHLORIDE 1,000 ML IV ONE (11:52)
[2022-12-26] MEDS ORDERED: ONDANSETRON 4 MG/2 ML VIAL IVPUSH ONE (11:58)
[2022-12-26] MEDS ORDERED: ONDANSETRON 4 MG/2 ML VIAL ONE (12:21)
[2022-12-26 12:24] LABS: BASO % 0.5 % (0-2.0); EOS % 0.8 % (0-4.5); HEMATOCRIT 41.4 % (35.4-49); HEMOGLOBIN 14.2 GM/dL (11.7-16.9); LYMPH % 11.1 % (8-40); MCH 27.7 pg (25.7-33.7); MCHC 34.2 g/dl (32.0-35.9); MEAN CELL VOLUME 81.1 fl (80-96); MEAN PLT VOLUME 6.8 fl (7.5-11.1); MONO % 5.6 % (3.8-10.2); PLATELET COUNT 334 10^3/uL (134-434); RDW 14.2 % (11.9-15.9); WHITE BLOOD COUNT 9.6 K/mm3 (4.0-10.0)
[2022-12-26 12:32] LABS: INR 1.07 (0.83-1.09); PROTHROMBIN TIME (PATIENT) 12.4 SEC (9.7-13.0)
[2022-12-26 12:34] LABS: ACTIVATED PTT 30.2 SECONDS (25.2-36.5)
[2022-12-26 12:48] LABS: POTASSIUM 3.7 mmol/L (3.5-5.1)
[2022-12-26 12:50] LABS: MAGNESIUM 1.9 mg/dL (1.8-2.4)
[2022-12-26 12:51] LABS: ALBUMIN 4.1 g/dl (3.4-5.0); BLOOD UREA NITROGEN 12.3 mg/dL (7-18); CALCIUM 9.3 mg/dL (8.5-10.1)
[2022-12-26 12:52] LABS: URINE APPEARANCE CLEAR; URINE BILIRUBIN NEGATIVE (NEGATIVE); URINE COLOR YELLOW; URINE GLUCOSE (UA) NEGATIVE (NEGATIVE); URINE KETONE NEGATIVE (NEGATIVE); URINE LEUK ESTERASE NEGATIVE (NEGATIVE); URINE NITRITE NEGATIVE (NEGATIVE); URINE PROTEIN NEGATIVE (NEGATIVE); URINE UROBILINOGEN 0.2 mg/dL (0.2-1.0)
[2022-12-26 12:53] LABS: CREATININE 1.2 mg/dL (0.55-1.3)
[2022-12-26 12:54] LABS: PHOSPHOROUS 3.1 mg/dL (2.5-4.9)
[2022-12-26 12:55] LABS: TOT PROT 6.6 g/dl (6.4-8.2)
[2022-12-26 12:56] LABS: BILIRUBIN,TOTAL 0.4 mg/dL (0.2-1)
[2022-12-26] MEDS ORDERED: MAG HYDROX/AL HYDROX/SIMETH 30 ML UNIT-DOSE CUP ONE (12:58)
[2022-12-26] MEDS ORDERED: LACTATED RINGERS SOLUTION 1000 ML INFUS.BAG IV ONE (13:04)
[2022-12-26] MEDS ORDERED: SODIUM CHLORIDE 0.9% 500 ML INFUS.BAG IV ONE (16:38)
[2022-12-26] MEDS ORDERED: METOCLOPRAMIDE HCL INJECTION 10 MG/2 ML VIAL IVPUSH ONE (16:38)
[2022-12-26] MEDS ORDERED: MECLIZINE HCL 25 MG TABLET (FP) PO ONE (16:40)
[2022-12-26] MEDS ORDERED: MECLIZINE HCL 25 MG TABLET (FP) ONE (16:49)
[2022-12-26] MEDS ORDERED: METOCLOPRAMIDE HCL INJECTION 10 MG/2 ML VIAL ONE (16:49)
[2022-12-26] MEDS ORDERED: TAMSULOSIN HCL 0.4 MG CAP PO ONE (16:58)
[2022-12-26] MEDS ORDERED: LACTATED RINGERS SOLUTION 1,000 ML/1,000 ML INFUS.BAG IV SCH (19:00)
[2022-12-26] MEDS ORDERED: TAMSULOSIN HCL 0.4 MG CAP ONE (19:11)
[2022-12-27] MEDS: ONDANSETRON 4 MG/2 ML VIAL IVPUSH PRN ×4 (00:56→16:44)
[2022-12-27 09:20] LABS: BASO % 0.4 % (0-2.0); EOS % 2.5 % (0-4.5); HEMATOCRIT 39.4 % (35.4-49); HEMOGLOBIN 13.4 GM/dL (11.7-16.9); LYMPH % 17.9 % (8-40); MCH 27.8 pg (25.7-33.7); MEAN CELL VOLUME 81.8 fl (80-96); MEAN PLT VOLUME 7.1 fl (7.5-11.1); MONO % 8.4 % (3.8-10.2); NEUT % 70.8 % (42.8-82.8); PLATELET COUNT 281 10^3/uL (134-434); RBC 4.81 M/mm3 (4.00-5.60); RDW 14.5 % (11.9-15.9); WHITE BLOOD COUNT 8.7 K/mm3 (4.0-10.0)
[2022-12-27 09:40] LABS: CALCIUM 9.2 mg/dL (8.5-10.1)
[2022-12-27 09:44] LABS: CREATININE 1.1 mg/dL (0.55-1.3)
[2022-12-27] MEDS ORDERED: PATIENT'S OWN MEDICATION (NON-FORMULARY) (Omeprazole [Omeprazole] 20 MG Tablet.Dr) PO SCH (10:00)
[2022-12-27] MEDS: ASPIRIN 81 MG CHEWABLE TABLETS PO SCH (10:19)
[2022-12-27] MEDS: amLODIPine BESYLATE 5 MG TABLET (FP) PO SCH (10:19)
[2022-12-27] MEDS: PANTOPRAZOLE 40 MG TABLET PO SCH (10:19)
[2022-12-27] MEDS: TAMSULOSIN HCL 0.4 MG CAP PO SCH (10:19)
[2022-12-27] MEDS: CHOLECALCIFEROL (VIT D3) 1,000 UNIT (25 MCG) TABLET PO SCH (10:19)
[2022-12-27] MEDS: ASCORBIC ACID 500 MG TABLET (FP) PO SCH (10:20)
[2022-12-27] MEDS ORDERED: MAG HYDROX/AL HYDROX/SIMETH 30 ML UNIT-DOSE CUP PO ONE (12:17)
[2022-12-27] MEDS: LACTATED RINGERS SOLUTION 1,000 ML/1,000 ML INFUS.BAG IV SCH ×2 (12:41→19:11)
[2022-12-27] MEDS: VANCOMYCIN ORAL SOLUTION 125 MG/2.5 ML PO SCH ×2 (13:31→18:01)
[2022-12-27] MEDS: THIAMINE HCL 100 MG TABLET (FP) PO SCH (21:45)
[2022-12-28] MEDS: VANCOMYCIN ORAL SOLUTION 125 MG/2.5 ML PO SCH (01:15)
[2022-12-28] MEDS: VANCOMYCIN 250 MG/5 ML ORAL SOLUTION PO SCH ×2 (06:31→11:37)
[2022-12-28] MEDS: LACTATED RINGERS SOLUTION 1,000 ML/1,000 ML INFUS.BAG IV SCH (07:52)
[2022-12-28] MEDS: MECLIZINE HCL 25 MG TABLET (FP) PO PRN (07:53)
[2022-12-28 08:20] LABS: POTASSIUM 3.6 mmol/L (3.5-5.1)
[2022-12-28 08:24] LABS: BLOOD UREA NITROGEN 6.2 mg/dL (7-18); MAGNESIUM 1.9 mg/dL (1.8-2.4)
[2022-12-28 08:26] LABS: CALCIUM 8.9 mg/dL (8.5-10.1)
[2022-12-28] MEDS ORDERED: LORazepam 2 MG TABLET PO ONE (09:50)
[2022-12-28] MEDS ORDERED: LORazepam 1 MG TABLET PO PRN (09:52)
[2022-12-28] MEDS: amLODIPine BESYLATE 5 MG TABLET (FP) PO SCH (10:44)
[2022-12-28] MEDS: TAMSULOSIN HCL 0.4 MG CAP PO SCH (10:44)
[2022-12-28] MEDS: ASPIRIN 81 MG CHEWABLE TABLETS PO SCH (10:44)
[2022-12-28] MEDS: PANTOPRAZOLE 40 MG TABLET PO SCH (10:44)
[2022-12-28] MEDS: ASCORBIC ACID 500 MG TABLET (FP) PO SCH (10:45)
[2022-12-28] MEDS: THIAMINE HCL 100 MG TABLET (FP) PO SCH ×2 (10:45→22:03)
[2022-12-28] MEDS ORDERED: LORazepam 1 MG TABLET PO SCH (11:00)
[2022-12-28] MEDS: CHOLECALCIFEROL (VIT D3) 1,000 UNIT (25 MCG) TABLET PO SCH ×2 (11:37→11:39)
[2022-12-28] MEDS: BANATROL PLUS POWDER PACKET PO SCH (22:04)
[2022-12-29] MEDS: VANCOMYCIN 250 MG/5 ML ORAL SOLUTION PO SCH ×5 (01:57→18:02)
[2022-12-29] MEDS: BANATROL PLUS POWDER PACKET PO SCH ×3 (05:33→21:59)
[2022-12-29] MEDS: ASCORBIC ACID 500 MG TABLET (FP) PO SCH (10:22)
[2022-12-29] MEDS: TAMSULOSIN HCL 0.4 MG CAP PO SCH (10:22)
[2022-12-29] MEDS: THIAMINE HCL 100 MG TABLET (FP) PO SCH ×2 (10:22→21:59)
[2022-12-29] MEDS: CHOLECALCIFEROL (VIT D3) 1,000 UNIT (25 MCG) TABLET PO SCH (10:22)
[2022-12-29] MEDS: amLODIPine BESYLATE 5 MG TABLET (FP) PO SCH (10:22)
[2022-12-29] MEDS: PANTOPRAZOLE 40 MG TABLET PO SCH (10:23)
[2022-12-29] MEDS: ASPIRIN 81 MG CHEWABLE TABLETS PO SCH (10:23)
[2022-12-29] MEDS: LACTATED RINGERS SOLUTION 1,000 ML/1,000 ML INFUS.BAG IV SCH (18:00)
[2022-12-30] MEDS: VANCOMYCIN 250 MG/5 ML ORAL SOLUTION PO SCH ×5 (00:25→23:06)
[2022-12-30] MEDS ORDERED: LORazepam 1 MG TABLET PO SCH (05:00)
[2022-12-30] MEDS: BANATROL PLUS POWDER PACKET PO SCH ×3 (05:50→23:06)
[2022-12-30 08:06] LABS: BASO % 0.8 % (0-2.0); EOS % 4.1 % (0-4.5); HEMATOCRIT 39.5 % (35.4-49); HEMOGLOBIN 13.1 GM/dL (11.7-16.9); LYMPH % 15.8 % (8-40); MCH 27.6 pg (25.7-33.7); MCHC 33.3 g/dl (32.0-35.9); MEAN CELL VOLUME 82.9 fl (80-96); MEAN PLT VOLUME 7.5 fl (7.5-11.1); MONO % 7.5 % (3.8-10.2); NEUT % 71.8 % (42.8-82.8); PLATELET COUNT 287 10^3/uL (134-434); RBC 4.76 M/mm3 (4.00-5.60); RDW 13.7 % (11.9-15.9); WHITE BLOOD COUNT 8.2 K/mm3 (4.0-10.0)
[2022-12-30 08:20] LABS: CALCIUM 8.9 mg/dL (8.5-10.1)
[2022-12-30 08:23] LABS: CREATININE 1.1 mg/dL (0.55-1.3)
[2022-12-30 08:24] LABS: ALBUMIN 3.5 g/dl (3.4-5.0); BLOOD UREA NITROGEN 12.1 mg/dL (7-18)
[2022-12-30 08:25] LABS: BILIRUBIN,TOTAL 0.4 mg/dL (0.2-1)
[2022-12-30] MEDS: ASCORBIC ACID 500 MG TABLET (FP) PO SCH (10:02)
[2022-12-30] MEDS: CHOLECALCIFEROL (VIT D3) 1,000 UNIT (25 MCG) TABLET PO SCH (10:02)
[2022-12-30] MEDS: ASPIRIN 81 MG CHEWABLE TABLETS PO SCH (10:02)
[2022-12-30] MEDS: THIAMINE HCL 100 MG TABLET (FP) PO SCH ×2 (10:02→23:06)
[2022-12-30] MEDS: amLODIPine BESYLATE 5 MG TABLET (FP) PO SCH (10:02)
[2022-12-30] MEDS: TAMSULOSIN HCL 0.4 MG CAP PO SCH (10:02)
[2022-12-30] MEDS: PANTOPRAZOLE 40 MG TABLET PO SCH (10:02)
[2022-12-30] MEDS ORDERED: SODIUM CHLORIDE 0.9% 500 ML INFUS.BAG IV ONE (11:54)
[2022-12-30 12:36] LABS: N-TERMINAL BNP 29.1 pg/ml (5-125)
[2022-12-30 19:19] VITALS: TEMP 97.8
[2022-12-30] MEDS ORDERED: ATORVASTATIN CA 20 MG TABLET (FP) PO SCH (22:00)
[2022-12-30] MEDS: MECLIZINE HCL 25 MG TABLET (FP) PO PRN (23:06)
[2022-12-31] MEDS ORDERED: LORazepam 0.5 MG TABLET PO PRN
[2022-12-31] MEDS ORDERED: LORazepam 0.5 MG TABLET PO SCH (05:00)
[2022-12-31 05:45] VITALS: BP 147/86; PULSE 102; RESP 18
[2022-12-31] MEDS: VANCOMYCIN 250 MG/5 ML ORAL SOLUTION PO SCH ×2 (06:18→12:25)
[2022-12-31] MEDS: BANATROL PLUS POWDER PACKET PO SCH (06:18)
[2022-12-31] MEDS ORDERED: TAMSULOSIN HCL 0.4 MG CAP PO SCH (08:30)
[2022-12-31] MEDS: CHOLECALCIFEROL (VIT D3) 1,000 UNIT (25 MCG) TABLET PO SCH (10:45)
[2022-12-31] MEDS: ASCORBIC ACID 500 MG TABLET (FP) PO SCH (10:45)
[2022-12-31] MEDS: PANTOPRAZOLE 40 MG TABLET PO SCH (10:45)
[2022-12-31] MEDS: amLODIPine BESYLATE 5 MG TABLET (FP) PO SCH (10:45)
[2022-12-31] MEDS: ASPIRIN 81 MG CHEWABLE TABLETS PO SCH (10:45)
[2022-12-31] MEDS: THIAMINE HCL 100 MG TABLET (FP) PO SCH (10:45)
[2023-01-01] MEDS ORDERED: LORazepam 0.5 MG TABLET PO ONE (05:00)
== END 2022-12-31 12:32 | disposition home or self-care (01) ==
LOC: JER 11:25 → INTOOBSV 17:13 → UNDOADMOB 17:13 → JERBED 17:13 → J6S 23:58 → J4S 12-27 18:58
PROVIDERS: ADMIT Internal Medicine; ATTEND Internal Medicine
PROC: 3E0337Z Introduction of Electrolytic and Water Balance Substance into Peripheral Vein, Percutaneous Approach (ICD-10-PCS; principal; 2022-12-26)
PROC: 3E033GC Introduction of Other Therapeutic Substance into Peripheral Vein, Percutaneous Approach (ICD-10-PCS; 2022-12-26)
DX: R55 Syncope and collapse (principal); R42 Dizziness and giddiness; R19.7 Diarrhea, unspecified; N13.2 Hydronephrosis with renal and ureteral calculous obstruction; R11.2 Nausea with vomiting, unspecified; Z88.0 Allergy status to penicillin
CPT/HCPCS: 36415; 70450-TC; 71045-TC-FY; 74177-TC; 76705-TC; 80048; 80053; 80061; 80307; 81003; 82550; 83036; 83690; 83735; 83880; 84100; 84443; 84484; 85025; 85610; 85730; 87040; 87045; 87046; 87086; 87186; 87324; 87449; 87635; 93005; 93010; 93306-TC; 93308; 96361; 96374; 96376; 97116-GP; 97162-GP; 99285-25; G0378; Q9967

== ENCOUNTER 2023-02-13 07:56 | Observation (INO) | payer OTHER ==
[2023-02-13] MEDS ORDERED: ONDANSETRON 4 MG/2 ML VIAL IVPUSH ONE (08:23)
[2023-02-13] MEDS ORDERED: SODIUM CHLORIDE 0.9% 1000 ML INFUS.BAG IV ONE (08:23)
[2023-02-13 08:28] VITALS: BMI 27.2
[2023-02-13] MEDS ORDERED: ONDANSETRON 4 MG/2 ML VIAL ONE ×2 (08:34→22:02)
[2023-02-13 09:24] LABS: BASO % 0.3 % (0-2.0); EOS % 2.3 % (0-4.5); HEMATOCRIT 42.3 % (35.4-49); HEMOGLOBIN 14.6 GM/dL (11.7-16.9); LYMPH % 11.6 % (8-40); MCH 28.1 pg (25.7-33.7); MCHC 34.6 g/dl (32.0-35.9); MEAN CELL VOLUME 81.2 fl (80-96); MEAN PLT VOLUME 6.9 fl (7.5-11.1); MONO % 9.1 % (3.8-10.2); NEUT % 76.7 % (42.8-82.8); PLATELET COUNT 308 10^3/uL (134-434); RBC 5.21 M/mm3 (4.00-5.60); RDW 15.3 % (11.9-15.9); WHITE BLOOD COUNT 11.1 K/mm3 (4.0-10.0)
[2023-02-13] MEDS ORDERED: MAG HYDROX/AL HYDROX/SIMETH 30 ML UNIT-DOSE CUP PO ONE (09:31)
[2023-02-13] MEDS ORDERED: FAMOTIDINE 20 MG/50 ML IVPB 20 MG/50 ML MG IVPB ONE ×2 (09:31→10:09)
[2023-02-13] MEDS ORDERED: MAG HYDROX/AL HYDROX/SIMETH 30 ML UNIT-DOSE CUP ONE (10:09)
[2023-02-13 10:14] LABS: POTASSIUM 3.9 mmol/L (3.5-5.1)
[2023-02-13 10:16] LABS: CALCIUM 9.3 mg/dL (8.5-10.1)
[2023-02-13 10:17] LABS: ALBUMIN 3.8 g/dl (3.4-5.0); BLOOD UREA NITROGEN 17.1 mg/dL (7-18)
[2023-02-13 10:19] LABS: CREATININE 1.2 mg/dL (0.55-1.3)
[2023-02-13 10:21] LABS: BILIRUBIN,TOTAL 0.3 mg/dL (0.2-1); TOT PROT 6.9 g/dl (6.4-8.2)
[2023-02-13 10:25] LABS: LACTIC ACID 2.6 mmol/L (0.4-2.0)
[2023-02-13] MEDS ORDERED: LACTATED RINGERS SOLUTION 1000 ML INFUS.BAG IV ONE (11:51)
[2023-02-13] MEDS ORDERED: VANCOMYCIN 1 GM in D5W (PRE-DOCKED) 1,000 MG/250 ML (RESTRICTED TO ID ONLY IVPB ONE (13:16)
[2023-02-13] MEDS ORDERED: VANCOMYCIN/WATER FOR INJ (PEG) 1,000 MG/200 ML BAG IVPB ONE (14:40)
[2023-02-13] MEDS ORDERED: VANCOMYCIN ORAL SOLUTION 125 MG/2.5 ML PO ONE ×2 (15:50→15:55)
[2023-02-13] MEDS ORDERED: ACETAMINOPHEN 325 MG TABLET (FP) PO PRN (16:07)
[2023-02-13] MEDS ORDERED: D5-1/2NS+20 MEQ KCL - 20 MEQ/1,000 ML INFUS.BAG IV SCH (16:15)
[2023-02-13] MEDS: VANCOMYCIN 250 MG/5 ML ORAL SOLUTION PO SCH (18:22)
[2023-02-13] MEDS ORDERED: HEPARIN NA (PORCINE) 5,000 UNITS/ML 1ML VIAL ONE (21:58)
[2023-02-13] MEDS: HEPARIN NA (PORCINE) 5,000 UNITS/ML 1ML VIAL SQ SCH (22:01)
[2023-02-13] MEDS: ONDANSETRON 4 MG/2 ML VIAL IVPUSH PRN (22:05)
[2023-02-13] MEDS ORDERED: MELATONIN 5 MG TABLETS PO ONE (22:53)
[2023-02-13] MEDS ORDERED: MELATONIN 5 MG TABLETS ONE (23:14)
[2023-02-14] MEDS ORDERED: ZOLPIDEM TARTRATE 5 MG TABLET PO ONE (00:30)
[2023-02-14] MEDS ORDERED: ZOLPIDEM TARTRATE 5 MG TABLET ONE (00:38)
[2023-02-14] MEDS: VANCOMYCIN 250 MG/5 ML ORAL SOLUTION PO SCH ×3 (00:40→11:49)
[2023-02-14 05:49] VITALS: RESP 18
[2023-02-14] MEDS ORDERED: ONDANSETRON 4 MG/2 ML VIAL ONE (07:36)
[2023-02-14] MEDS: ONDANSETRON 4 MG/2 ML VIAL IVPUSH PRN (07:40)
[2023-02-14] MEDS ORDERED: TAMSULOSIN HCL 0.4 MG CAP PO SCH (08:00)
[2023-02-14] MEDS ORDERED: TAMSULOSIN HCL 0.4 MG CAP ONE (08:25)
[2023-02-14 08:38] LABS: BASO % 0.6 % (0-2.0); EOS % 4.3 % (0-4.5); HEMATOCRIT 43.5 % (35.4-49); HEMOGLOBIN 14.7 GM/dL (11.7-16.9); LYMPH % 13.4 % (8-40); MCHC 33.7 g/dl (32.0-35.9); MEAN CELL VOLUME 83.2 fl (80-96); MEAN PLT VOLUME 7.3 fl (7.5-11.1); MONO % 8.4 % (3.8-10.2); NEUT % 73.3 % (42.8-82.8); PLATELET COUNT 267 10^3/uL (134-434); RBC 5.23 M/mm3 (4.00-5.60); WHITE BLOOD COUNT 9.1 K/mm3 (4.0-10.0)
[2023-02-14 08:57] LABS: POTASSIUM 3.7 mmol/L (3.5-5.1)
[2023-02-14 09:02] LABS: ALBUMIN 3.7 g/dl (3.4-5.0); BLOOD UREA NITROGEN 9.1 mg/dL (7-18); CALCIUM 9.1 mg/dL (8.5-10.1); MAGNESIUM 2.1 mg/dL (1.8-2.4)
[2023-02-14 09:06] LABS: BILIRUBIN,TOTAL 0.6 mg/dL (0.2-1); TOT PROT 6.7 g/dl (6.4-8.2)
[2023-02-14] MEDS ORDERED: CHOLECALCIFEROL (VIT D3) 1,000 UNIT (25 MCG) TABLET ONE (09:46)
[2023-02-14] MEDS ORDERED: amLODIPine BESYLATE 5 MG TABLET (FP) ONE (09:46)
[2023-02-14] MEDS ORDERED: PANTOPRAZOLE 40 MG TABLET PO ONE (09:46)
[2023-02-14] MEDS ORDERED: HEPARIN NA (PORCINE) 5,000 UNITS/ML 1ML VIAL ONE (09:46)
[2023-02-14] MEDS: HEPARIN NA (PORCINE) 5,000 UNITS/ML 1ML VIAL SQ SCH (09:53)
[2023-02-14] MEDS ORDERED: PANTOPRAZOLE 40 MG TABLET PO SCH (10:00)
[2023-02-14] MEDS ORDERED: CHOLECALCIFEROL (VIT D3) 1,000 UNIT (25 MCG) TABLET PO SCH (10:00)
[2023-02-14] MEDS ORDERED: amLODIPine BESYLATE 5 MG TABLET (FP) PO SCH (10:00)
[2023-02-14] MEDS ORDERED: LACTATED RINGERS SOLUTION 1,000 ML/1,000 ML INFUS.BAG IV STA (10:03)
[2023-02-14 14:39] VITALS: BP 153/87; PULSE 107; TEMP 98
== END 2023-02-14 15:04 | disposition home or self-care (01) ==
LOC: JER 07:56 → JERBED 11:58
PROVIDERS: ADMIT Internal Medicine; ATTEND Internal Medicine
PROC: 3E033GC Introduction of Other Therapeutic Substance into Peripheral Vein, Percutaneous Approach (ICD-10-PCS; principal; 2023-02-13)
PROC: 3E023GC Introduction of Other Therapeutic Substance into Muscle, Percutaneous Approach (ICD-10-PCS; 2023-02-13)
PROC: 3E0337Z Introduction of Electrolytic and Water Balance Substance into Peripheral Vein, Percutaneous Approach (ICD-10-PCS; 2023-02-13)
PROC: 3E033GC Introduction of Other Therapeutic Substance into Peripheral Vein, Percutaneous Approach (ICD-10-PCS; 2023-02-13)
PROC: 3E03329 Introduction of Other Anti-infective into Peripheral Vein, Percutaneous Approach (ICD-10-PCS; 2023-02-13)
DX: A04.72 Enterocolitis due to Clostridium difficile, not specified as recurrent (principal); E86.0 Dehydration; I10 Essential (primary) hypertension; E78.5 Hyperlipidemia, unspecified; N20.0 Calculus of kidney; Z88.0 Allergy status to penicillin
CPT/HCPCS: 36415; 74177-TC; 80053; 82272; 83605; 83690; 83735; 85025; 85651; 87045; 87046; 87324; 87449; 93005; 93010; 96361; 96365; 96372; 96375; 96376; 99285-25; G0378; J1644; Q9967

== ENCOUNTER 2023-06-02 11:14 | Inpatient (IN) | payer OTHER ==
[2023-06-02] MEDS ORDERED: SODIUM CHLORIDE 0.9% 500 ML INFUS.BAG IV ONE (12:45)
[2023-06-02] MEDS ORDERED: LACTATED RINGERS SOLUTION 1000 ML INFUS.BAG IV ONE (13:45)
[2023-06-02 14:00] LABS: BASO % 0.6 % (0-2.0); EOS % 0.3 % (0-4.5); HEMOGLOBIN 14.4 GM/dL (11.7-16.9); LYMPH % 12.5 % (8-40); MCHC 32.8 g/dl (32.0-35.9); MEAN CELL VOLUME 85.4 fl (80-96); MEAN PLT VOLUME 6.7 fl (7.5-11.1); MONO % 4.6 % (3.8-10.2); PLATELET COUNT 237 10^3/uL (134-434); RBC 5.15 M/mm3 (4.00-5.60); RDW 15.9 % (11.9-15.9); WHITE BLOOD COUNT 12.9 K/mm3 (4.0-10.0)
[2023-06-02 14:21] LABS: MAGNESIUM 2.4 mg/dL (1.8-2.4)
[2023-06-02 14:25] LABS: PHOSPHOROUS 3.2 mg/dL (2.5-4.9)
[2023-06-02 14:33] LABS: CHLORIDE 104 mmol/L (98-107); SODIUM 137 mmol/L (136-145)
[2023-06-02 14:35] LABS: CALCIUM 9.2 mg/dL (8.5-10.1)
[2023-06-02 14:36] LABS: ALBUMIN 4.3 g/dl (3.4-5.0); CO2 23 mmol/L (21-32); GLUCOSE,RANDOM 95 mg/dL (74-106); LIPASE 114 U/L (73-393)
[2023-06-02 14:39] LABS: CREATININE 1.5 mg/dL (0.55-1.3); SGOT/AST 30 U/L (15-37); SGPT/ALT 46 U/L (13-61)
[2023-06-02 14:40] LABS: TOT PROT 7.5 g/dl (6.4-8.2)
[2023-06-02 14:41] LABS: BILIRUBIN,TOTAL 0.5 mg/dL (0.2-1)
[2023-06-02 14:42] LABS: ALK PHOS 132 U/L (45-117)
[2023-06-02 14:44] LABS: ANION GAP 10 mmol/L (4-13); POTASSIUM 2.9 mmol/L (3.5-5.1)
[2023-06-02] MEDS ORDERED: POTASSIUM CHLORIDE TABS 20 MEQ TABLET.ER (FP) PO ONE ×2 (14:47→14:53)
[2023-06-02] MEDS ORDERED: KCL 10 MEQ IVPB 10 MEQ/100 ML INFUS.BAG IVPB ONE (14:54)
[2023-06-02 15:19] LABS: PH,URINE 5.5 (5.0-8.0); URINE APPEARANCE CLEAR; URINE BILIRUBIN NEGATIVE (NEGATIVE); URINE COLOR YELLOW; URINE GLUCOSE (UA) NEGATIVE (NEGATIVE); URINE KETONE NEGATIVE (NEGATIVE); URINE LEUK ESTERASE NEGATIVE (NEGATIVE); URINE NITRITE NEGATIVE (NEGATIVE); URINE PROTEIN NEGATIVE (NEGATIVE); URINE UROBILINOGEN 0.2 mg/dL (0.2-1.0)
[2023-06-02] MEDS ORDERED: hydrOXYzine HCL 10 MG/5 ML LIQUID BULK BOTTLE PO ONE (17:03)
[2023-06-02] MEDS: D5-1/2NS+20 MEQ KCL - 20 MEQ/1,000 ML INFUS.BAG IV SCH (17:29)
[2023-06-02] MEDS: KCL 10 MEQ IVPB 10 MEQ/100 ML INFUS.BAG IVPB SCH ×6 (17:34→23:07)
[2023-06-02] MEDS ORDERED: hydrOXYzine PAMOATE 25 MG CAPSULE (FP) PO ONE (17:37)
[2023-06-02] MEDS ORDERED: SODIUM CHLORIDE 1,000 ML IV SCH (18:15)
[2023-06-02] MEDS ORDERED: ACETAMINOPHEN 1000 MG/100 ML BAG IVPB PRN (18:32)
[2023-06-02] MEDS ORDERED: MELATONIN 5 MG TABLETS ONE (21:25)
[2023-06-02] MEDS: MELATONIN 1 MG TABLET PO SCH (22:04)
[2023-06-03 03:56] LABS: POTASSIUM 3.5 mmol/L (3.5-5.1)
[2023-06-03 03:59] LABS: CALCIUM 8.4 mg/dL (8.5-10.1)
[2023-06-03 04:00] LABS: BLOOD UREA NITROGEN 9.1 mg/dL (7-18)
[2023-06-03 04:03] LABS: CREATININE 1.1 mg/dL (0.55-1.3)
[2023-06-03] MEDS: VANCOMYCIN ORAL SOLUTION 125 MG/2.5 ML PO SCH ×4 (04:37→17:46)
[2023-06-03] MEDS ORDERED: MAG HYDROX/AL HYDROX/SIMETH 30 ML UNIT-DOSE CUP ONE (07:43)
[2023-06-03 08:21] LABS: HEMATOCRIT 41.1 % (35.4-49); HEMOGLOBIN 13.7 GM/dL (11.7-16.9); MCH 28.3 pg (25.7-33.7); MCHC 33.3 g/dl (32.0-35.9); MEAN CELL VOLUME 84.9 fl (80-96); MEAN PLT VOLUME 6.6 fl (7.5-11.1); PLATELET COUNT 293 10^3/uL (134-434); RBC 4.84 M/mm3 (4.00-5.60); WHITE BLOOD COUNT 9.8 K/mm3 (4.0-10.0)
[2023-06-03 09:11] LABS: POTASSIUM 3.3 mmol/L (3.5-5.1)
[2023-06-03 09:19] LABS: BLOOD UREA NITROGEN 8.4 mg/dL (7-18); CALCIUM 8.4 mg/dL (8.5-10.1)
[2023-06-03 09:22] LABS: CREATININE 1.1 mg/dL (0.55-1.3)
[2023-06-03] MEDS: TAMSULOSIN HCL 0.4 MG CAP PO SCH (09:35)
[2023-06-03] MEDS: PANTOPRAZOLE 40 MG TABLET PO SCH (09:36)
[2023-06-03] MEDS: amLODIPine BESYLATE 5 MG TABLET (FP) PO SCH (09:36)
[2023-06-03] MEDS: ASCORBIC ACID 500 MG TABLET (FP) PO SCH (09:36)
[2023-06-03] MEDS ORDERED: ASPIRIN 81 MG CHEWABLE TABLETS PO SCH (10:00)
[2023-06-03] MEDS: D5-1/2NS+20 MEQ KCL - 20 MEQ/1,000 ML INFUS.BAG IV SCH ×2 (12:12→17:46)
[2023-06-03] MEDS: MELATONIN 1 MG TABLET PO SCH (23:34)
[2023-06-04] MEDS: VANCOMYCIN ORAL SOLUTION 125 MG/2.5 ML PO SCH ×2 (00:03→06:06)
[2023-06-04 07:42] LABS: BASO % 0.6 % (0-2.0); EOS % 4.7 % (0-4.5); HEMATOCRIT 40.5 % (35.4-49); HEMOGLOBIN 13.4 GM/dL (11.7-16.9); LYMPH % 15.4 % (8-40); MCH 28.4 pg (25.7-33.7); MCHC 33.2 g/dl (32.0-35.9); MEAN CELL VOLUME 85.4 fl (80-96); MEAN PLT VOLUME 6.8 fl (7.5-11.1); NEUT % 70.3 % (42.8-82.8); PLATELET COUNT 256 10^3/uL (134-434); RBC 4.74 M/mm3 (4.00-5.60); RDW 15.7 % (11.9-15.9)
[2023-06-04 07:55] LABS: POTASSIUM 3.3 mmol/L (3.5-5.1)
[2023-06-04 08:05] LABS: ALBUMIN 3.8 g/dl (3.4-5.0); BLOOD UREA NITROGEN 6.5 mg/dL (7-18); CALCIUM 8.9 mg/dL (8.5-10.1)
[2023-06-04 08:09] LABS: CREATININE 0.9 mg/dL (0.55-1.3)
[2023-06-04 08:10] LABS: BILIRUBIN,TOTAL 0.5 mg/dL (0.2-1); TOT PROT 6.6 g/dl (6.4-8.2)
[2023-06-04] MEDS: TAMSULOSIN HCL 0.4 MG CAP PO SCH (09:24)
[2023-06-04] MEDS: PANTOPRAZOLE 40 MG TABLET PO SCH (09:24)
[2023-06-04] MEDS: ASCORBIC ACID 500 MG TABLET (FP) PO SCH (09:24)
[2023-06-04] MEDS: amLODIPine BESYLATE 5 MG TABLET (FP) PO SCH (09:24)
[2023-06-04] MEDS: VANCOMYCIN 250 MG/5 ML ORAL SOLUTION PO SCH ×3 (11:06→23:34)
[2023-06-04] MEDS ORDERED: MIRTAZAPINE 15 MG TABLET (FP) ONE (12:40)
[2023-06-04] MEDS ORDERED: MIRTAZAPINE 30 MG TABLET PO SCH ×2 (12:45→22:00)
[2023-06-04] MEDS: MIRTAZAPINE 30 MG TABLET PO SCH (12:47)
[2023-06-04] MEDS: ALPRAZolam 0.25 MG TABLET PO PRN (15:37)
[2023-06-04] MEDS: D5-1/2NS+20 MEQ KCL - 20 MEQ/1,000 ML INFUS.BAG IV SCH (15:39)
[2023-06-04] MEDS: LACTOBACILLUS ACIDOPHILUS 1 TABLET PO SCH (21:47)
[2023-06-04] MEDS: MELATONIN 1 MG TABLET PO SCH (21:47)
[2023-06-05] MEDS: VANCOMYCIN 250 MG/5 ML ORAL SOLUTION PO SCH ×3 (06:18→17:01)
[2023-06-05] MEDS: D5-1/2NS+20 MEQ KCL - 20 MEQ/1,000 ML INFUS.BAG IV SCH (06:19)
[2023-06-05 06:58] LABS: BASO % 0.5 % (0-2.0); EOS % 5.4 % (0-4.5); HEMATOCRIT 40.4 % (35.4-49); HEMOGLOBIN 13.4 GM/dL (11.7-16.9); LYMPH % 13.4 % (8-40); MCH 28.2 pg (25.7-33.7); MCHC 33.1 g/dl (32.0-35.9); MEAN PLT VOLUME 6.5 fl (7.5-11.1); MONO % 9.4 % (3.8-10.2); NEUT % 71.3 % (42.8-82.8); PLATELET COUNT 218 10^3/uL (134-434); RBC 4.75 M/mm3 (4.00-5.60); RDW 15.8 % (11.9-15.9); WHITE BLOOD COUNT 8.5 K/mm3 (4.0-10.0)
[2023-06-05 07:21] LABS: POTASSIUM 3.4 mmol/L (3.5-5.1)
[2023-06-05 07:26] LABS: ALBUMIN 3.5 g/dl (3.4-5.0); CALCIUM 8.6 mg/dL (8.5-10.1)
[2023-06-05 07:29] LABS: CREATININE 0.9 mg/dL (0.55-1.3); PHOSPHOROUS 2.9 mg/dL (2.5-4.9)
[2023-06-05 07:31] LABS: BILIRUBIN,TOTAL 0.8 mg/dL (0.2-1); TOT PROT 6.4 g/dl (6.4-8.2)
[2023-06-05] MEDS: TAMSULOSIN HCL 0.4 MG CAP PO SCH (09:30)
[2023-06-05] MEDS: ENOXAPARIN NA (PORCINE) 40 MG/0.4 ML DISP.SYRIN SQ SCH (09:31)
[2023-06-05] MEDS: amLODIPine BESYLATE 5 MG TABLET (FP) PO SCH (09:31)
[2023-06-05] MEDS: ALPRAZolam 0.25 MG TABLET PO PRN (11:15)
[2023-06-05] MEDS: POTASSIUM CHLORIDE 40 MEQ in SODIUM CHLORIDE 0.45% 1,000 ML IV SCH ×2 (12:30→23:00)
[2023-06-05] MEDS ORDERED: MIRTAZAPINE 15 MG TABLET (FP) ONE (21:25)
[2023-06-05] MEDS: LACTOBACILLUS ACIDOPHILUS 1 TABLET PO SCH (22:24)
[2023-06-05] MEDS: MIRTAZAPINE 30 MG TABLET PO SCH (22:24)
[2023-06-05] MEDS: MELATONIN 1 MG TABLET PO SCH (22:25)
[2023-06-06] MEDS: VANCOMYCIN 250 MG/5 ML ORAL SOLUTION PO SCH ×4 (00:13→17:09)
[2023-06-06 07:39] LABS: BASO % 0.7 % (0-2.0); EOS % 6.3 % (0-4.5); HEMOGLOBIN 14.4 GM/dL (11.7-16.9); LYMPH % 15.6 % (8-40); MCH 28.6 pg (25.7-33.7); MCHC 34.2 g/dl (32.0-35.9); MEAN CELL VOLUME 83.7 fl (80-96); MEAN PLT VOLUME 6.9 fl (7.5-11.1); MONO % 9.1 % (3.8-10.2); NEUT % 68.3 % (42.8-82.8); PLATELET COUNT 240 10^3/uL (134-434); RBC 5.02 M/mm3 (4.00-5.60); RDW 15.9 % (11.9-15.9); WHITE BLOOD COUNT 8.3 K/mm3 (4.0-10.0)
[2023-06-06 07:58] LABS: POTASSIUM 3.7 mmol/L (3.5-5.1)
[2023-06-06 08:03] LABS: ALBUMIN 3.5 g/dl (3.4-5.0)
[2023-06-06 08:04] LABS: BLOOD UREA NITROGEN 9.4 mg/dL (7-18); MAGNESIUM 2.1 mg/dL (1.8-2.4)
[2023-06-06 08:06] LABS: CREATININE 0.9 mg/dL (0.55-1.3); PHOSPHOROUS 2.9 mg/dL (2.5-4.9)
[2023-06-06 08:08] LABS: BILIRUBIN,TOTAL 0.6 mg/dL (0.2-1); TOT PROT 6.4 g/dl (6.4-8.2)
[2023-06-06] MEDS: ENOXAPARIN NA (PORCINE) 40 MG/0.4 ML DISP.SYRIN SQ SCH (09:26)
[2023-06-06] MEDS: amLODIPine BESYLATE 5 MG TABLET (FP) PO SCH (09:26)
[2023-06-06] MEDS: TAMSULOSIN HCL 0.4 MG CAP PO SCH (09:26)
[2023-06-06] MEDS: ALPRAZolam 0.25 MG TABLET PO PRN (09:30)
[2023-06-06] MEDS: POTASSIUM CHLORIDE 40 MEQ in SODIUM CHLORIDE 0.45% 1,000 ML IV SCH (11:16)
[2023-06-06] MEDS ORDERED: POTASSIUM CHLORIDE 40 MEQ in SODIUM CHLORIDE 0.45% 1,000 ML IV SCH (18:32)
[2023-06-06] MEDS: MIRTAZAPINE 15 MG TABLET (FP) PO SCH (22:12)
[2023-06-06] MEDS: MELATONIN 1 MG TABLET PO SCH (22:13)
[2023-06-06] MEDS: LACTOBACILLUS ACIDOPHILUS 1 TABLET PO SCH (22:23)
[2023-06-06 23:15] VITALS: RESP 18
[2023-06-07] MEDS: VANCOMYCIN 250 MG/5 ML ORAL SOLUTION PO SCH ×4 (01:06→18:48)
[2023-06-07 09:12] LABS: BASO % 0.7 % (0-2.0); EOS % 6.2 % (0-4.5); HEMATOCRIT 39.8 % (35.4-49); HEMOGLOBIN 13.9 GM/dL (11.7-16.9); LYMPH % 11.7 % (8-40); MCH 28.8 pg (25.7-33.7); MCHC 34.9 g/dl (32.0-35.9); MEAN CELL VOLUME 82.7 fl (80-96); MEAN PLT VOLUME 6.9 fl (7.5-11.1); MONO % 9.8 % (3.8-10.2); NEUT % 71.6 % (42.8-82.8); PLATELET COUNT 250 10^3/uL (134-434); RBC 4.81 M/mm3 (4.00-5.60); RDW 16.4 % (11.9-15.9); WHITE BLOOD COUNT 8.7 K/mm3 (4.0-10.0)
[2023-06-07 09:30] LABS: POTASSIUM 3.4 mmol/L (3.5-5.1)
[2023-06-07 09:35] LABS: ALBUMIN 3.5 g/dl (3.4-5.0); BLOOD UREA NITROGEN 8.7 mg/dL (7-18); CALCIUM 8.9 mg/dL (8.5-10.1); MAGNESIUM 2.1 mg/dL (1.8-2.4)
[2023-06-07 09:37] LABS: CREATININE 0.9 mg/dL (0.55-1.3); PHOSPHOROUS 2.9 mg/dL (2.5-4.9)
[2023-06-07 09:39] LABS: BILIRUBIN,TOTAL 0.4 mg/dL (0.2-1); TOT PROT 6.2 g/dl (6.4-8.2)
[2023-06-07] MEDS: ENOXAPARIN NA (PORCINE) 40 MG/0.4 ML DISP.SYRIN SQ SCH (10:45)
[2023-06-07] MEDS: ALPRAZolam 0.25 MG TABLET PO PRN (10:45)
[2023-06-07] MEDS: TAMSULOSIN HCL 0.4 MG CAP PO SCH (10:46)
[2023-06-07] MEDS: amLODIPine BESYLATE 5 MG TABLET (FP) PO SCH (10:46)
[2023-06-07] MEDS: LACTOBACILLUS ACIDOPHILUS 1 TABLET PO SCH (21:34)
[2023-06-07] MEDS: MELATONIN 1 MG TABLET PO SCH (21:34)
[2023-06-07] MEDS: MIRTAZAPINE 15 MG TABLET (FP) PO SCH (21:34)
[2023-06-08] MEDS: VANCOMYCIN 250 MG/5 ML ORAL SOLUTION PO SCH ×4 (00:25→17:00)
[2023-06-08] MEDS: TAMSULOSIN HCL 0.4 MG CAP PO SCH (08:20)
[2023-06-08] MEDS: ALPRAZolam 0.25 MG TABLET PO PRN (09:06)
[2023-06-08] MEDS: amLODIPine BESYLATE 5 MG TABLET (FP) PO SCH (09:06)
[2023-06-08] MEDS: ENOXAPARIN NA (PORCINE) 40 MG/0.4 ML DISP.SYRIN SQ SCH (09:06)
[2023-06-08 10:43] LABS: BASO % 0.6 % (0-2.0); EOS % 6.4 % (0-4.5); HEMATOCRIT 42.3 % (35.4-49); HEMOGLOBIN 13.7 GM/dL (11.7-16.9); LYMPH % 17.1 % (8-40); MCH 27.8 pg (25.7-33.7); MCHC 32.3 g/dl (32.0-35.9); MEAN CELL VOLUME 86.2 fl (80-96); MEAN PLT VOLUME 7.1 fl (7.5-11.1); MONO % 7.8 % (3.8-10.2); NEUT % 68.1 % (42.8-82.8); PLATELET COUNT 243 10^3/uL (134-434); RBC 4.91 M/mm3 (4.00-5.60); RDW 16.2 % (11.9-15.9); WHITE BLOOD COUNT 8.1 K/mm3 (4.0-10.0)
[2023-06-08 11:05] LABS: POTASSIUM 3.5 mmol/L (3.5-5.1)
[2023-06-08 11:34] LABS: CHOLESTEROL 153 mg/dL (50-200)
[2023-06-08 11:35] LABS: LDL CHOLESTEROL (ONLY SJRH) 81 mg/dL (5-100)
[2023-06-08 11:37] LABS: CALCIUM 9.1 mg/dL (8.5-10.1); HDL CHOLESTEROL 49 mg/dL (40-60)
[2023-06-08 11:38] LABS: BLOOD UREA NITROGEN 9.3 mg/dL (7-18); MAGNESIUM 2.2 mg/dL (1.8-2.4)
[2023-06-08 11:41] LABS: CREATININE 0.9 mg/dL (0.55-1.3); PHOSPHOROUS 2.8 mg/dL (2.5-4.9)
[2023-06-08 11:54] VITALS: BMI 39.5
[2023-06-08 14:14] VITALS: BP 132/82; PULSE 108; TEMP 98.3
== END 2023-06-08 18:35 | disposition home or self-care (01) | DRG 248 ==
LOC: JER 11:14 → JERBED 14:57 → J4W 06-03 11:53 → OBSVTOIN 06-04 12:25 → J6S 06-06 18:22
PROVIDERS: ADMIT Internal Medicine; ATTEND Internal Medicine
DX: A04.72 Enterocolitis due to Clostridium difficile, not specified as recurrent (principal); I10 Essential (primary) hypertension; E78.5 Hyperlipidemia, unspecified; E86.0 Dehydration; E87.6 Hypokalemia; F32.A Depression, unspecified; R55 Syncope and collapse; G47.30 Sleep apnea, unspecified; F41.8 Other specified anxiety disorders; N20.0 Calculus of kidney; E66.9 Obesity, unspecified; Z68.39 Body mass index [BMI] 39.0-39.9, adult
CPT/HCPCS: 0241U-QW; 36415; 70450-TC; 71045-TC-FY; 80048; 80053; 80061; 81003; 82962; 83690; 83735; 84100; 84484; 85025; 85027; 87040; 87045; 87046; 87086; 87324; 87449; 87493; 93005; 93010; 93306-TC; 99285-25; G0378

== ENCOUNTER 2023-09-08 11:08 | Emergency (ER) | payer OTHER ==
[2023-09-08 11:35] VITALS: RESP 19; BMI 38.0
[2023-09-08] MEDS ORDERED: ONDANSETRON 4 MG/2 ML VIAL ONE (11:53)
[2023-09-08] MEDS: ONDANSETRON 4 MG/2 ML VIAL IVPUSH ONE (12:08)
[2023-09-08] MEDS: LACTATED RINGERS SOLUTION 1000 ML INFUS.BAG IV ONE ×2 (12:08→13:46)
[2023-09-08 12:29] LABS: BASO % 0.7 % (0-2.0); EOS % 2.3 % (0-4.5); HEMATOCRIT 38.3 % (35.4-49); HEMOGLOBIN 12.7 GM/dL (11.7-16.9); LYMPH % 13.7 % (8-40); MCH 28.5 pg (25.7-33.7); MCHC 33.2 g/dl (32.0-35.9); MEAN CELL VOLUME 85.9 fl (80-96); MEAN PLT VOLUME 6.5 fl (7.5-11.1); MONO % 6.6 % (3.8-10.2); NEUT % 76.7 % (42.8-82.8); PLATELET COUNT 290 10^3/uL (134-434); RBC 4.46 M/mm3 (4.00-5.60); RDW 14.9 % (11.9-15.9); WHITE BLOOD COUNT 9.4 K/mm3 (4.0-10.0)
[2023-09-08 12:30] LABS: PH,URINE 6.5 (5.0-8.0); URINE APPEARANCE CLEAR; URINE BILIRUBIN NEGATIVE (NEGATIVE); URINE COLOR YELLOW; URINE GLUCOSE (UA) NEGATIVE (NEGATIVE); URINE KETONE NEGATIVE (NEGATIVE); URINE LEUK ESTERASE NEGATIVE (NEGATIVE); URINE NITRITE NEGATIVE (NEGATIVE); URINE PROTEIN NEGATIVE (NEGATIVE); URINE UROBILINOGEN 0.2 mg/dL (0.2-1.0)
[2023-09-08 12:47] LABS: POTASSIUM 3.3 mmol/L (3.5-5.1)
[2023-09-08 12:49] LABS: ALBUMIN 3.5 g/dl (3.4-5.0); BLOOD UREA NITROGEN 14.3 mg/dL (7-18); CALCIUM 8.6 mg/dL (8.5-10.1)
[2023-09-08 12:50] LABS: MAGNESIUM 2.3 mg/dL (1.8-2.4)
[2023-09-08 12:54] LABS: BILIRUBIN,TOTAL 0.3 mg/dL (0.2-1); TOT PROT 6.1 g/dl (6.4-8.2)
[2023-09-08] MEDS ORDERED: POTASSIUM CHLORIDE ORAL LIQUID 20 MEQ/15 ML ONE (13:11)
[2023-09-08] MEDS: POTASSIUM CHLORIDE ORAL LIQUID 20 MEQ/15 ML PO ONE (13:18)
[2023-09-08] MEDS ORDERED: METOCLOPRAMIDE HCL INJECTION 10 MG/2 ML VIAL ONE (13:38)
[2023-09-08] MEDS ORDERED: ACETAMINOPHEN INJECTION 100 ML IVPB ONE (13:38)
[2023-09-08] MEDS: ACETAMINOPHEN 1000 MG/100 ML BAG IVPB ONE (13:46)
[2023-09-08] MEDS: METOCLOPRAMIDE HCL INJECTION 10 MG/2 ML VIAL IVPUSH ONE (13:46)
[2023-09-08 15:16] VITALS: BP 154/77; PULSE 87; TEMP 98.2
== END 2023-09-08 15:56 | disposition home or self-care (01) ==
LOC: JER 11:08
PROC: 3E033NZ Introduction of Analgesics, Hypnotics, Sedatives into Peripheral Vein, Percutaneous Approach (ICD-10-PCS; principal; 2023-09-08)
PROC: 3E033GC Introduction of Other Therapeutic Substance into Peripheral Vein, Percutaneous Approach (ICD-10-PCS; 2023-09-08)
PROC: 3E033GC Introduction of Other Therapeutic Substance into Peripheral Vein, Percutaneous Approach (ICD-10-PCS; 2023-09-08)
DX: R42 Dizziness and giddiness (principal); R11.0 Nausea; Z20.822 Contact with and (suspected) exposure to COVID-19
CPT/HCPCS: 0241U-QW; 36415; 71045-TC-FY; 80053; 81003; 83735; 84484; 85025; 87086; 99285-25; J0131

== ENCOUNTER 2024-01-21 11:37 | Observation (INO) | payer OTHER ==
[2024-01-21 11:43] VITALS: BMI 39.4
[2024-01-21] MEDS ORDERED: ONDANSETRON 4 MG/2 ML VIAL ONE (12:35)
[2024-01-21] MEDS: SODIUM CHLORIDE 1,000 ML IV STA (13:22)
[2024-01-21] MEDS: ONDANSETRON 4 MG/2 ML VIAL IVPUSH ONE (13:23)
[2024-01-21 13:26] LABS: BASO % 0.9 % (0-2.0); EOS % 2.8 % (0-4.5); HEMATOCRIT 45.8 % (35.4-49); HEMOGLOBIN 15.2 GM/dL (11.7-16.9); LYMPH % 13.8 % (8-40); MCH 27.7 pg (25.7-33.7); MCHC 33.3 g/dl (32.0-35.9); MEAN CELL VOLUME 83.2 fl (80-96); MEAN PLT VOLUME 6.9 fl (7.5-11.1); MONO % 6.9 % (3.8-10.2); NEUT % 75.6 % (42.8-82.8); PLATELET COUNT 434 10^3/uL (134-434); RDW 15.1 % (11.9-15.9); WHITE BLOOD COUNT 11.3 K/mm3 (4.0-10.0)
[2024-01-21 13:28] LABS: URINE APPEARANCE CLEAR; URINE BILIRUBIN NEGATIVE (NEGATIVE); URINE COLOR YELLOW; URINE GLUCOSE (UA) NEGATIVE (NEGATIVE); URINE KETONE NEGATIVE (NEGATIVE); URINE LEUK ESTERASE NEGATIVE (NEGATIVE); URINE NITRITE NEGATIVE (NEGATIVE); URINE PROTEIN TRACE (NEGATIVE)
[2024-01-21 13:45] LABS: POTASSIUM 4.6 mmol/L (3.5-5.1)
[2024-01-21 13:46] LABS: CALCIUM 9.1 mg/dL (8.5-10.1)
[2024-01-21 13:47] LABS: ALBUMIN 4.2 g/dl (3.4-5.0); BLOOD UREA NITROGEN 18.1 mg/dL (7-18); MAGNESIUM 2.3 mg/dL (1.8-2.4)
[2024-01-21 13:52] LABS: BILIRUBIN,TOTAL 0.6 mg/dL (0.2-1); TOT PROT 7.6 g/dl (6.4-8.2)
[2024-01-21 13:54] LABS: CREATININE 1.5 mg/dL (0.55-1.3)
[2024-01-21 14:02] LABS: LACTIC ACID 2.2 mmol/L (0.4-2.0)
[2024-01-21] MEDS ORDERED: CEFTRIAXONE 1,000 MG in DEXTROSE 5%-WATER - 50 ML IVPB ONE (16:13)
[2024-01-21 17:44] LABS: INR 1.08 (0.83-1.09); PROTHROMBIN TIME (PATIENT) 12.2 SEC (9.7-13.0)
[2024-01-21 17:46] LABS: ACTIVATED PTT 32.1 SECONDS (25.2-36.5); LACTIC ACID 2.1 mmol/L (0.4-2.0)
[2024-01-21] MEDS: LACTATED RINGERS SOLUTION 1,000 ML/1,000 ML INFUS.BAG IV SCH (18:47)
[2024-01-21] MEDS: PANTOPRAZOLE SODIUM 40 MG VIAL IVPUSH SCH (23:00)
[2024-01-21] MEDS: QUEtiapine FUMARATE 25 MG TABLET PO SCH (23:00)
[2024-01-22 08:35] LABS: BASO % 0.8 % (0-2.0); EOS % 5.3 % (0-4.5); HEMATOCRIT 37.7 % (35.4-49); HEMOGLOBIN 12.7 GM/dL (11.7-16.9); MCHC 33.6 g/dl (32.0-35.9); MEAN CELL VOLUME 83.3 fl (80-96); MEAN PLT VOLUME 6.9 fl (7.5-11.1); MONO % 9.3 % (3.8-10.2); NEUT % 67.6 % (42.8-82.8); PLATELET COUNT 229 10^3/uL (134-434); RBC 4.53 M/mm3 (4.00-5.60); RDW 15.3 % (11.9-15.9)
[2024-01-22 08:50] LABS: POTASSIUM 3.5 mmol/L (3.5-5.1)
[2024-01-22 08:53] LABS: CALCIUM 8.3 mg/dL (8.5-10.1)
[2024-01-22 08:54] LABS: BLOOD UREA NITROGEN 13.7 mg/dL (7-18)
[2024-01-22 08:59] LABS: ALBUMIN 3.4 g/dl (3.4-5.0)
[2024-01-22 09:01] LABS: BILIRUBIN,TOTAL 0.5 mg/dL (0.2-1)
[2024-01-22 09:02] LABS: BILIRUBIN,DIRECT 0.2 mg/dL (0.0-0.2)
[2024-01-22] MEDS: SERTRALINE HCL 50 MG TABLET (FP) PO SCH (09:35)
[2024-01-22] MEDS ORDERED: PATIENT'S OWN MEDICATION (NON-FORMULARY) (Sertraline Hcl [Zoloft] 100 MG Tablet) PO SCH (10:00)
[2024-01-22] MEDS: MELATONIN 5 MG TABLETS PO ONE (21:43)
[2024-01-23 09:53] LABS: EOS % 6.3 % (0-4.5); HEMATOCRIT 40.2 % (35.4-49); HEMOGLOBIN 13.4 GM/dL (11.7-16.9); LYMPH % 16.5 % (8-40); MCH 27.6 pg (25.7-33.7); MCHC 33.5 g/dl (32.0-35.9); MEAN CELL VOLUME 82.4 fl (80-96); MEAN PLT VOLUME 7.1 fl (7.5-11.1); MONO % 8.9 % (3.8-10.2); NEUT % 67.3 % (42.8-82.8); PLATELET COUNT 236 10^3/uL (134-434); RBC 4.87 M/mm3 (4.00-5.60); RDW 15.1 % (11.9-15.9); WHITE BLOOD COUNT 5.8 K/mm3 (4.0-10.0)
[2024-01-23 11:31] LABS: ALBUMIN 3.6 g/dl (3.4-5.0); BILIRUBIN,TOTAL 0.5 mg/dL (0.2-1); BLOOD UREA NITROGEN 5.4 mg/dL (7-18); CALCIUM 8.8 mg/dL (8.5-10.1); CREATININE 0.9 mg/dL (0.55-1.3); POTASSIUM 3.4 mmol/L (3.5-5.1); TOT PROT 6.3 g/dl (6.4-8.2)
[2024-01-23] MEDS: TRIMETHOBENZAMIDE HCL 200MG/2ML INJ IM PRN (16:32)
[2024-01-23] MEDS: SERTRALINE HCL 50 MG TABLET (FP) PO SCH (21:12)
[2024-01-23] MEDS: QUEtiapine FUMARATE 25 MG TABLET PO SCH (21:12)
[2024-01-23] MEDS: PANTOPRAZOLE 40 MG TABLET PO SCH (21:13)
[2024-01-24 09:52] LABS: HEMATOCRIT 41.3 % (35.4-49); MCHC 33.8 g/dl (32.0-35.9); MEAN CELL VOLUME 82.7 fl (80-96); MEAN PLT VOLUME 7.1 fl (7.5-11.1); PLATELET COUNT 287 10^3/uL (134-434); RDW 15.1 % (11.9-15.9); WHITE BLOOD COUNT 6.9 K/mm3 (4.0-10.0)
[2024-01-24 10:02] LABS: POTASSIUM 3.2 mmol/L (3.5-5.1)
[2024-01-24 10:24] LABS: ALBUMIN 3.7 g/dl (3.4-5.0); BLOOD UREA NITROGEN 3.1 mg/dL (7-18)
[2024-01-24 10:27] LABS: CREATININE 0.9 mg/dL (0.55-1.3); PHOSPHOROUS 2.6 mg/dL (2.5-4.9)
[2024-01-24 10:28] LABS: BILIRUBIN,DIRECT 0.3 mg/dL (0.0-0.2)
[2024-01-24 10:29] LABS: BILIRUBIN,TOTAL 0.6 mg/dL (0.2-1); TOT PROT 6.9 g/dl (6.4-8.2)
[2024-01-24] MEDS: ONDANSETRON 4 MG/2 ML VIAL IVPUSH PRN (12:06)
[2024-01-24] MEDS: LACTATED RINGERS SOLUTION 1,000 ML/1,000 ML INFUS.BAG IV SCH (13:52)
[2024-01-24] MEDS: POTASSIUM CHLORIDE ORAL LIQUID 20 MEQ/15 ML PO SCH (14:34)
[2024-01-24] MEDS: HEPARIN NA (PORCINE) 5,000 UNITS/ML 1ML VIAL SQ SCH (21:11)
[2024-01-25 08:11] LABS: CARCINOEMBRYONIC ANTIGEN 2.8 ng/mL (0.0-4.7)
[2024-01-25 10:08] LABS: BASO % 1.1 % (0-2.0); EOS % 7.4 % (0-4.5); HEMATOCRIT 39.3 % (35.4-49); HEMOGLOBIN 13.3 GM/dL (11.7-16.9); LYMPH % 19.7 % (8-40); MCHC 33.8 g/dl (32.0-35.9); MEAN CELL VOLUME 82.7 fl (80-96); MEAN PLT VOLUME 7.1 fl (7.5-11.1); MONO % 9.7 % (3.8-10.2); NEUT % 62.1 % (42.8-82.8); PLATELET COUNT 256 10^3/uL (134-434); RBC 4.75 M/mm3 (4.00-5.60); WHITE BLOOD COUNT 5.6 K/mm3 (4.0-10.0)
[2024-01-25 10:32] LABS: CHLORIDE 106 mmol/L (98-107); POTASSIUM 3.3 mmol/L (3.5-5.1); SODIUM 141 mmol/L (136-145)
[2024-01-25 10:36] LABS: ALBUMIN 3.3 g/dl (3.4-5.0); ANION GAP 6 mmol/L (4-13); CALCIUM 8.9 mg/dL (8.5-10.1); CO2 29 mmol/L (21-32); GLUCOSE,RANDOM 102 mg/dL (74-106); MAGNESIUM 1.8 mg/dL (1.8-2.4)
[2024-01-25 10:38] LABS: SGOT/AST 87 U/L (15-37); SGPT/ALT 110 U/L (13-61)
[2024-01-25 10:39] LABS: BILIRUBIN,TOTAL 0.6 mg/dL (0.2-1); CREATININE 0.8 mg/dL (0.55-1.3); PHOSPHOROUS 2.5 mg/dL (2.5-4.9); TOT PROT 5.9 g/dl (6.4-8.2)
[2024-01-25 10:41] LABS: ALK PHOS 369 U/L (45-117)
[2024-01-25 10:42] LABS: BLOOD UREA NITROGEN 2.3 mg/dL (7-18)
[2024-01-25] MEDS: POTASSIUM CHLORIDE TABS 20 MEQ TABLET.ER (FP) PO ONE (14:35)
[2024-01-25] MEDS: QUEtiapine FUMARATE 25 MG TABLET PO ONE (14:35)
[2024-01-25 16:02] VITALS: RESP 18
[2024-01-25] MEDS: VANCOMYCIN ORAL SOLUTION 125 MG/2.5 ML PO SCH (17:45)
[2024-01-25] MEDS ORDERED: QUEtiapine FUMARATE 25 MG TABLET ONE (21:15)
[2024-01-25] MEDS: QUEtiapine FUMARATE 50 MG TABLET PO SCH (21:47)
[2024-01-26] MEDS: VANCOMYCIN 250 MG/5 ML ORAL SOLUTION (RESTRICTED TO ID ONLY) PO SCH (00:14)
[2024-01-26 09:47] LABS: POTASSIUM 3.5 mmol/L (3.5-5.1)
[2024-01-26 10:06] LABS: ALBUMIN 3.3 g/dl (3.4-5.0); BLOOD UREA NITROGEN 3.2 mg/dL (7-18); CREATININE 0.8 mg/dL (0.55-1.3); PHOSPHOROUS 2.6 mg/dL (2.5-4.9)
[2024-01-26 10:07] LABS: BILIRUBIN,TOTAL 0.6 mg/dL (0.2-1); TOT PROT 6.1 g/dl (6.4-8.2)
[2024-01-26 10:10] LABS: CALCIUM 8.5 mg/dL (8.5-10.1)
[2024-01-26] MEDS ORDERED: QUEtiapine FUMARATE 25 MG TABLET ONE (11:00)
[2024-01-26 16:00] VITALS: BP 116/86; PULSE 106; TEMP 99
== END 2024-01-26 17:20 | disposition home or self-care (01) ==
LOC: JER 11:37 → INTOOBSV 16:48 → JERBED 16:48 → UNDOADMOB 16:48 → J5S 01-22 00:05 → JERBED 01-22 00:05 → J5S 01-23 14:34 → JERBED 01-23 14:34
PROVIDERS: ADMIT Internal Medicine; ATTEND Internal Medicine
PROC: 3E023GC Introduction of Other Therapeutic Substance into Muscle, Percutaneous Approach (ICD-10-PCS; principal; 2024-01-23)
PROC: 3E033GC Introduction of Other Therapeutic Substance into Peripheral Vein, Percutaneous Approach (ICD-10-PCS; 2024-01-23)
PROC: 3E0337Z Introduction of Electrolytic and Water Balance Substance into Peripheral Vein, Percutaneous Approach (ICD-10-PCS; 2024-01-23)
PROC: 3E023GC Introduction of Other Therapeutic Substance into Muscle, Percutaneous Approach (ICD-10-PCS; 2024-01-23)
DX: N17.9 Acute kidney failure, unspecified (principal); R74.01 Elevation of levels of liver transaminase levels; N12 Tubulo-interstitial nephritis, not specified as acute or chronic; Z79.1 Long term (current) use of non-steroidal anti-inflammatories (NSAID); R04.2 Hemoptysis; K76.0 Fatty (change of) liver, not elsewhere classified; N20.0 Calculus of kidney; R45.851 Suicidal ideations; F32.A Depression, unspecified; A04.72 Enterocolitis due to Clostridium difficile, not specified as recurrent; Z88.0 Allergy status to penicillin
CPT/HCPCS: 36415; 74177-TC; 76705-TC; 80048; 80053; 80076; 81003; 82378; 82962; 83605; 83690; 83735; 84100; 84153; 85025; 85027; 85610; 85730; 86301; 86705; 86708; 86709; 87086; 87324; 87340; 87449; 87493; 87517; 87522; 93005; 93010; 96361; 96372; 96374; 96375; 96376; 99285-25; G0378; J1644

== ENCOUNTER 2024-02-18 09:49 | Emergency (ER) | payer OTHER ==
[2024-02-18 09:55] VITALS: TEMP 97.6; BMI 38.1
[2024-02-18] MEDS ORDERED: MECLIZINE HCL 25 MG TABLET (FP) ONE (10:58)
[2024-02-18] MEDS ORDERED: FAMOTIDINE 20 MG/50 ML IVPB 20 MG/50 ML MG IVPB ONE (10:58)
[2024-02-18] MEDS: MECLIZINE HCL 25 MG TABLET (FP) PO ONE (11:25)
[2024-02-18] MEDS: SODIUM CHLORIDE 1,000 ML IV STA (12:57)
[2024-02-18] MEDS: FAMOTIDINE 20 MG/50 ML IVPB 20 MG/50 ML MG IVPB ONE (12:57)
[2024-02-18 13:10] LABS: BASO % 0.4 % (0-2.0); EOS % 0.8 % (0-4.5); HEMATOCRIT 39.3 % (35.4-49); HEMOGLOBIN 13.4 GM/dL (11.7-16.9); LYMPH % 9.7 % (8-40); MCH 28.2 pg (25.7-33.7); MEAN CELL VOLUME 82.7 fl (80-96); MEAN PLT VOLUME 7.2 fl (7.5-11.1); MONO % 6.3 % (3.8-10.2); NEUT % 82.8 % (42.8-82.8); PLATELET COUNT 294 10^3/uL (134-434); RBC 4.75 M/mm3 (4.00-5.60); RDW 15.2 % (11.9-15.9); WHITE BLOOD COUNT 12.8 K/mm3 (4.0-10.0)
[2024-02-18 13:22] VITALS: BP 120/69; PULSE 68; RESP 20
[2024-02-18 13:23] LABS: URINE APPEARANCE CLEAR; URINE BILIRUBIN NEGATIVE (NEGATIVE); URINE COLOR YELLOW; URINE GLUCOSE (UA) NEGATIVE (NEGATIVE); URINE KETONE NEGATIVE (NEGATIVE); URINE LEUK ESTERASE NEGATIVE (NEGATIVE); URINE NITRITE NEGATIVE (NEGATIVE); URINE PROTEIN NEGATIVE (NEGATIVE); URINE UROBILINOGEN 0.2 mg/dL (0.2-1.0)
[2024-02-18 13:32] LABS: POTASSIUM 3.6 mmol/L (3.5-5.1)
[2024-02-18 13:35] LABS: ALBUMIN 3.7 g/dl (3.4-5.0); BLOOD UREA NITROGEN 16.4 mg/dL (7-18); MAGNESIUM 2.4 mg/dL (1.8-2.4)
[2024-02-18 13:38] LABS: CREATININE 1.2 mg/dL (0.55-1.3)
[2024-02-18 13:39] LABS: BILIRUBIN,TOTAL 0.3 mg/dL (0.2-1)
[2024-02-18 13:40] LABS: TOT PROT 6.5 g/dl (6.4-8.2)
[2024-02-18 14:28] LABS: HIV INTERPRETATION NEGATIVE (NEGATIVE)
[2024-02-18] MEDS ORDERED: ONDANSETRON 4 MG/2 ML VIAL ONE (14:32)
[2024-02-18] MEDS: ONDANSETRON 4 MG/2 ML VIAL IVPB ONE (14:37)
== END 2024-02-18 16:22 | disposition home or self-care (01) ==
LOC: JER 09:49
DX: T45.0X1A Poisoning by antiallergic and antiemetic drugs, accidental (unintentional), initial encounter (principal); T39.311A Poisoning by propionic acid derivatives, accidental (unintentional), initial encounter; R11.2 Nausea with vomiting, unspecified
CPT/HCPCS: 36415; 80053; 80307; 81003; 82550; 83690; 83735; 85025; 86803; 87086; 87389; 93005; 93010; 99284-25

== ENCOUNTER 2024-06-05 16:06 | Observation (INO) | payer OTHER ==
[2024-06-05 16:41] VITALS: BMI 39.4
[2024-06-05 17:49] LABS: BASO % 0.4 % (0-2.0); EOS % 0.9 % (0-4.5); HEMATOCRIT 44.2 % (35.4-49); HEMOGLOBIN 14.8 GM/dL (11.7-16.9); LYMPH % 8.7 % (8-40); MCH 27.2 pg (25.7-33.7); MCHC 33.5 g/dl (32.0-35.9); MEAN PLT VOLUME 6.9 fl (7.5-11.1); MONO % 6.7 % (3.8-10.2); NEUT % 83.3 % (42.8-82.8); PLATELET COUNT 332 10^3/uL (134-434); RBC 5.46 M/mm3 (4.00-5.60); RDW 15.4 % (11.9-15.9); WHITE BLOOD COUNT 14.8 K/mm3 (4.0-10.0)
[2024-06-05] MEDS ORDERED: ONDANSETRON 4 MG/2 ML VIAL ONE (17:55)
[2024-06-05 18:06] LABS: POTASSIUM 3.9 mmol/L (3.5-5.1)
[2024-06-05 18:08] LABS: CALCIUM 9.2 mg/dL (8.5-10.1)
[2024-06-05] MEDS: ONDANSETRON 4 MG/2 ML VIAL IVPB ONE (18:08)
[2024-06-05] MEDS: SODIUM CHLORIDE 0.9% 500 ML INFUS.BAG IV ONE (18:08)
[2024-06-05 18:09] LABS: ALBUMIN 3.9 g/dl (3.4-5.0); BLOOD UREA NITROGEN 14.8 mg/dL (7-18)
[2024-06-05 18:12] LABS: CREATININE 1.3 mg/dL (0.55-1.3)
[2024-06-05 18:13] LABS: BILIRUBIN,TOTAL 0.4 mg/dL (0.2-1)
[2024-06-05 18:17] LABS: N-TERMINAL BNP 109.1 pg/ml (5-125)
[2024-06-05 18:18] LABS: INR 1.08 (0.83-1.09); PROTHROMBIN TIME (PATIENT) 12.4 SEC (9.7-13.0)
[2024-06-05 18:19] LABS: ACTIVATED PTT 28.8 SECONDS (25.2-36.5)
[2024-06-05 19:10] LABS: HIV INTERPRETATION NEGATIVE (NEGATIVE)
[2024-06-05] MEDS: QUEtiapine FUMARATE 50 MG TABLET PO SCH (23:19)
[2024-06-05] MEDS ORDERED: QUEtiapine FUMARATE 25 MG TABLET ONE (23:20)
[2024-06-06 01:23] LABS: URINE APPEARANCE CLEAR; URINE BILIRUBIN NEGATIVE (NEGATIVE); URINE COLOR YELLOW; URINE GLUCOSE (UA) NEGATIVE (NEGATIVE); URINE KETONE 1+ (NEGATIVE); URINE LEUK ESTERASE NEGATIVE (NEGATIVE); URINE NITRITE NEGATIVE (NEGATIVE); URINE PROTEIN TRACE (NEGATIVE); URINE UROBILINOGEN 0.2 mg/dL (0.2-1.0)
[2024-06-06] MEDS ORDERED: QUEtiapine FUMARATE 25 MG TABLET ONE ×2 (01:46→09:45)
[2024-06-06] MEDS: MELATONIN 5 MG TABLETS PO PRN (02:15)
[2024-06-06 02:37] LABS: HEMATOCRIT 40.3 % (35.4-49); HEMOGLOBIN 13.5 GM/dL (11.7-16.9); MCH 27.2 pg (25.7-33.7); MCHC 33.5 g/dl (32.0-35.9); MEAN CELL VOLUME 81.3 fl (80-96); MEAN PLT VOLUME 7.1 fl (7.5-11.1); PLATELET COUNT 239 10^3/uL (134-434); RBC 4.96 M/mm3 (4.00-5.60); RDW 15.5 % (11.9-15.9); WHITE BLOOD COUNT 8.8 K/mm3 (4.0-10.0)
[2024-06-06] MEDS: QUEtiapine FUMARATE 25 MG TABLET PO ONE (03:20)
[2024-06-06 07:18] LABS: HEMATOCRIT 41.3 % (35.4-49); HEMOGLOBIN 13.5 GM/dL (11.7-16.9); MCHC 32.8 g/dl (32.0-35.9); MEAN CELL VOLUME 82.4 fl (80-96); PLATELET COUNT 255 10^3/uL (134-434); RBC 5.02 M/mm3 (4.00-5.60); RDW 15.6 % (11.9-15.9); WHITE BLOOD COUNT 8.8 K/mm3 (4.0-10.0)
[2024-06-06 07:40] LABS: POTASSIUM 4.3 mmol/L (3.5-5.1)
[2024-06-06 07:49] LABS: ALBUMIN 3.4 g/dl (3.4-5.0); CALCIUM 9.1 mg/dL (8.5-10.1)
[2024-06-06 07:50] LABS: BLOOD UREA NITROGEN 13.1 mg/dL (7-18); MAGNESIUM 2.1 mg/dL (1.8-2.4)
[2024-06-06 07:53] LABS: PHOSPHOROUS 3.1 mg/dL (2.5-4.9)
[2024-06-06 07:54] LABS: BILIRUBIN,TOTAL 0.5 mg/dL (0.2-1); TOT PROT 6.2 g/dl (6.4-8.2)
[2024-06-06] MEDS: LABETALOL HCL 100 MG TABLET (FP) PO SCH (10:06)
[2024-06-06] MEDS: amLODIPine BESYLATE 10 MG TABLET (FP) PO SCH (10:06)
[2024-06-06] MEDS: ENOXAPARIN NA (PORCINE) 40 MG/0.4 ML DISP.SYRIN SQ SCH (10:07)
[2024-06-06] MEDS ORDERED: REGADENOSON 0.4 MG/5 ML PRE-FILLED SYRINGE IVPUSH ONE (11:55)
[2024-06-06] MEDS: REGADENOSON 0.4 MG/5 ML PRE-FILLED SYRINGE IVPUSH ONE (12:00)
[2024-06-06 14:22] VITALS: RESP 18
[2024-06-06 19:12] VITALS: BP 107/76; PULSE 95; TEMP 98.2
[2024-06-06] MEDS ORDERED: ATORVASTATIN CA 40 MG TABLET (FP) PO SCH (22:00)
== END 2024-06-06 19:41 | disposition home or self-care (01) ==
LOC: JER 16:06 → OBSVTOIN 20:31 → INTOOBSV 20:31 → UNDOADMOB 20:31 → JERBED 20:31 → J4S 06-06 00:01 → JERBED 06-06 00:01 → J4S 06-06 13:52
PROVIDERS: ADMIT Internal Medicine; ATTEND Internal Medicine
PROC: 3E033GC Introduction of Other Therapeutic Substance into Peripheral Vein, Percutaneous Approach (ICD-10-PCS; principal; 2024-06-06)
PROC: 3E023GC Introduction of Other Therapeutic Substance into Muscle, Percutaneous Approach (ICD-10-PCS; 2024-06-06)
PROC: 3E0337Z Introduction of Electrolytic and Water Balance Substance into Peripheral Vein, Percutaneous Approach (ICD-10-PCS; 2024-06-06)
DX: R00.0 Tachycardia, unspecified (principal); I95.1 Orthostatic hypotension; E78.5 Hyperlipidemia, unspecified; K76.0 Fatty (change of) liver, not elsewhere classified; F10.21 Alcohol dependence, in remission; F41.8 Other specified anxiety disorders; K86.9 Disease of pancreas, unspecified; Z86.19 Personal history of other infectious and parasitic diseases; Z88.0 Allergy status to penicillin; Z91.51 Personal history of suicidal behavior
CPT/HCPCS: 0241U-QW; 36415; 71045-TC-FY; 78452-TC; 80053; 81003; 83735; 83880; 84100; 84484; 85025; 85027; 85379; 85610; 85730; 86803; 87389; 93005; 93010; 93017; 96372; 96374; 96375; 99285-25; A9502; G0378; J2785